=== PATIENT | male | born 1950 | race Caucasian/White ===

== ENCOUNTER 2024-11-16 09:08 | Inpatient (IN) | payer OTHER ==
[~2024-11-16] VITALS: Ht 185.4 cm; Wt 54.6 kg
[2024-11-16] VITALS (27 sets, daily range): BP systolic 85–114; BP diastolic 58–79; PULSE 74–108; RESP 14–22; TEMP 97.2–97.7; O2SAT 60–100
--- NOTE | 2024-11-16 09:42 | ED.PDOC ---
SOB-HPI HPI Comments 74 year old male presents to the ED via EMS with a chief complaint of shortness of breath onset today (11/16/24). Per EMS, family noticed patient was experiencing productive cough, face and lips were turning blue, 911 was called. Patient was seen at [facility] [place] this week, was diagnosed with possible Pneumonia, was prescribed Azithromycin. Upon EMS arrival, patient's O2 sat was 60% on RA, was placed on NRB 15 L, O2 improved to 85%, BP was 80 systolic, GCS 10 which is baseline according to family. Patient was given breathing treatment, IV fluids in route to ED, BP improved to 92 systolic. PMHx CVA. Patient is a poor historian. No other symptoms or modifying factors present at this time. Chief Complaint: Shortness of Breath Time Seen by MD: 09:20 Reviewed notes: Medications, Allergies Information Source: Emergency Med Personnel Mode of Arrival: EMS Severity: Moderate Timing: Hours Duration: Since onset Context: At Rest PE Risk Factors: None History of: Recent Antibiotic Prehospital treatment: Breathing Tx, IVF, Oxygen Modifying Factors: Nothing Associated Signs and Symptoms: Cough If cough with SOB: Productive Past Medical History PAST MEDICAL HISTORY: CVA Surgical History: Denies all surgeries Family History Family History: Reviewed,noncontributory to illness, No family hx of Cancer, No family hx of DM, No family hx of Heart go, No family hx of HTN, No family hx ofKidney go, No family hx of Liver go, No family hx of Lung go, No family hx of Stroke Social History Smoker: Non-Smoker Alcohol: Denies ETOH Use Drugs: Denies Drug Use Lives In: Home Constitutional: denies: chills, diaphoresis, fatigue, fever, malaise, sweats, weakness, others EENTM: denies: blurred vision, double vision, ear bleeding, ear discharge, ear drainage, ear pain, ear ringing, eye pain, eye redness, hearing loss, mouth pain , mouth swelling, nasal discharge, nose bleeding, nose congestion, nose pain, photophobia, tearing, throat pain, throat swelling, voice changes, others Respiratory: reports: cough, shortness of breath; denies: hemoptysis, orthopnea, SOB at rest, SOB with excertion, stridor, wheezing, others Cardiovascular: denies: chest pain, dizzy spells, diaphoresis, Dyspnea on exertion, edema, irregular heart beat, left arm pain, lightheadedness, palpitations, PND, syncope, others Gastrointestinal: denies: abdomen distended, abdominal pain, blood streaked bowels, constipated, diarrhea, dysphagia, difficulty swallowing, hematemesis, melena, nausea, poor appetite, poor fluid intake, rectal bleeding, rectal pain, vomiting, others Genitourinary: denies: burning, dysuria, flank pain, frequency, hematuria, incontinence, penile discharge, penile sore, pain, testicle pain, testicle swelling, urgency, others Neurological: denies: dizziness, fainting, headache, left sided numbness, left sided weakness, numbness, paresthesia, pre-existing deficit, right sided numbness, right sided weakness, seizure, speech problems, tingling, tremors, weakness, others Musculoskeletal: denies: back pain, gout, joint pain, joint swelling, muscle pain, muscle stiffness, neck pain, others Integumetry: denies: bruises, change in color, change in hair/nails, dryness, laceration, lesions, lumps, rash, wounds, others Allergic/Immunocompromised: denies: Difficulty Healing, Frequent Infections, Hives, Itching, others Hematologic/Lymphatic: denies: anemia, blood clots, easy bleeding, easy bruising, swollen glands, others Endocrine: denies: excessive hunger, excessive sweating, excessive thirst, excessive urination, flushing, intolerance to cold, intolerance to heat, unexplained weight gain, unexplained weight loss, others Psychiatric: denies: anxiety, bipolar disorder, depression, hopeless, panic disorder, schizophrenia, sleepless, suicidal, others All Other Systems: Reviewed and Negative Physical Exam General Appearance: No Apparent Distress, Normal HEENT: Normal ENT Inspection, Pharynx Normal, TMs Normal Neck: Full Range of Motion, Non-Tender, Normal, Normal Inspection Respiratory: Other (Tachypneic and hypoxic) Cardiovascular: No Edema, No JVD, No Murmur, No Gallop, Normal Peripheral Pulses, Regular Rate/Rhythm Breast Exam: Deferred Gastrointestinal: No Organomegaly, Non Tender, No Pulsatile Mass, Normal Bowel Sounds, Soft Genitalia: Deferred Pelvic: Deferred Rectal: Deferred Extremities: No calf tenderness, Normal capillary refill, Normal inspection, Normal range of motion, Non-tender, No pedal edema Musculoskeletal : Apperance: Normal Neurologic: Alert, sales 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 Indication: Hypotension Room prepared for procedure: Yes Try Out Person performed hand hygien: Yes Maximal sterile barrier precau: Mask/Eye shield, Sterile gown, Cap, Sterlie gloves, Large sterlie drape Skin Preparation: Chlorhexidine gluconate, Providine iodine, Alcohol Skin preparation completely dr: Yes Insertion site: Right, Femoral Central line catheter type: [id number] dialysis Number of lumens: 3 Antiseptic ointment applied to: Yes Post Assessment: Chest X-Ray, Proper placement Informed consent obtained: Yes Risks/benefits/alt described: Yes Intubation Indication: Respiratory Insufficiency Prep: Preoxygenation Pretreated with: Sedation Medicated with: Other (etomidate 20 mg, Rocuronium 100 mg) Intubation Approach: Orotracheal (8.0) Informed consent obtained: Yes Risks/benefits/alt described: Yes Differential Dx Differential Diagnosis: Asthma, Bronchitis, Hyponatremia, Pneumonia, Respiratory Distress X-Ray, Labs, Meds, VS Vital Signs Date Time Temp Pulse Resp B/P (MAP) Pulse Ox O2 Delivery O2 Flow Rate FiO2 11/16/24 14:32 97.2 98 17 114/79 100 65 97.2 11/16/24 14:02 115/77 11/16/24 14:00 115/77 11/16/24 13:12 98 17 114/79 (91) 100 65 11/16/24 12:30 101 16 111/76 (88) 100 100 11/16/24 12:23 97.2 112 16 106/76 (86) 100 97.2 11/16/24 11:43 Mechanical Ventilator 11/16/24 11:43 108 16 60 Mechanical Ventilator 11/16/24 11:43 97.2 108 16 119/81 (94) 60 97.2 11/16/24 11:10 126/79 11/16/24 11:03 125/78 11/16/24 10:38 116 16 134/84 (101) 64 100 11/16/24 10:15 131/83 11/16/24 10:03 130/84 11/16/24 10:00 130/84 11/16/24 09:52 114 16 134/83 (100) 95 100 11/16/24 09:50 134/83 11/16/24 09:48 84/53 11/16/24 09:47 97/60 11/16/24 09:17 94 22 97 Simple Mask* 12 N/A 11/16/24 09:17 97.8 94 22 94/58 (70) 97 97.8 11/16/24 09:15 99.3 90 20 90/73 (79) 85 99.3 11/16/24 09:14 20 85 Non-Rebreather 15 N/A 11/16/24 09:14 96 Lab Test 11/16/24 13:05 11/16/24 12:50 11/16/24 10:05 11/16/24 09:28 Range/Units Blood Gas Specimen Type Arterial Blood Gas Sample Site Left radial Blood Gas Patient Temperature 37.0 Arterial Blood Date Drawn [id number] Arterial Blood pH 7.262 L 7.350-7.450 Arterial Blood Partial Pressure CO2 44.3 35.0-48.0 mmHg Arterial Blood Partial Pressure O2 294.8 H 83.0-108.0 mmHg Arterial Blood HCO3 19.5 L 21.0-28.0 mmol/L Arterial Blood Oxygen Saturation 99.7 H 94.0-98.0 % Arterial Blood Base Excess -7.4 L -2.0-3.0 mmol/L Arterial Blood Oxyhemoglobin 98.6 H 94.0-98.0 % Arterial Blood Carboxyhemoglobin 0.3 L 0.5-1.5 % Arterial Blood Methemoglobin 0.8 0.0-1.5 % Cheng Test Modified Blood Gas Total Hemoglobin 16.20 13.5-17.5 g/dL Blood Gas Set Respiration Rate 16.0 Blood Gas Modality Vent - ac FiO2 % 100.0 Blood Gas Tidal Volume 500.0 Blood Gas PEEP or CPAP 10.0 Lactic Acid Level 1.3 2.7 *H 0.4-2.0 mmol/L Troponin I High Sensitivity 28 3 L </=54 ng/L Urine Color Yellow Yellow Urine Clarity Turbid H Clear Urine pH 5.0 5.0-9.0 Urine Specific [place] 1.023 1.001-1.035 Urine Protein Trace H Negative Urine Ketones 1+ H Negative Urine Blood 1+ H Negative /uL Urine Nitrite Negative Negative Urine Bilirubin Negative Negative Urine Urobilinogen Normal Negative mg/dL Urine Leukocyte Esterase Negative Negative /uL Urine RBC 10 0 - 3 /hpf Urine Microscopic WBC 9 H 0-3 /HPF Urine Squamous Epithelial Cells Few <5 /hpf Urine Bacteria None seen None Seen /hpf Urine Mucus Moderate None Seen Urine Glucose Trace Normal mg/dL White Blood Count 5.8 4.4-10.8 10^3/uL Red Blood Count 4.95 4.5-5.90 10^6/uL Hemoglobin 15.2 13.5-17.5 g/dL Hematocrit 46.0 41.0-53.0 % Mean Corpuscular Volume 92.8 80.0-100.0 fL Mean Corpuscular Hemoglobin 30.7 28.0-32.0 pg Mean Corpuscular Hemoglobin Concent 33.1 32.0-36.0 g/dL Red Cell Distribution Width 14.5 H 11.8-14.3 % Platelet Count 166 140-450 10^3/uL Mean Platelet Volume 8.7 6.9-10.8 fL Neutrophils (%) (Auto) 72.6 37.0-80.0 % Lymphocytes (%) (Auto) 17.4 10.0-50.0 % Monocytes (%) (Auto) 7.8 0.0-12.0 % Eosinophils (%) (Auto) 1.8 0.0-7.0 % Basophils (%) (Auto) 0.4 0.0-2.0 % Neutrophils # (Auto) 4.2 1.6-8.6 10 ^3/uL Lymphocytes # (Auto) 1.0 0.4-5.4 10 ^3/uL Monocytes # (Auto) 0.4 0-1.3 10 ^3/uL Eosinophils # (Auto) 0.1 0-0.8 10 ^3/uL Basophils # (Auto) 0 0-0.2 10 ^3/uL Nucleated Red Blood Cells 0.1 % Sodium Level 146 H 136-145 mmol/L Potassium Level 3.4 L 3.5-5.1 mmol/L Chloride Level 110 H 98-107 mmol/L Carbon Dioxide Level 22 20-31 mmol/L Anion Gap 14 5-15 Blood Urea Nitrogen 22 9-23 mg/dL Creatinine 1.02 0.700-1.30 mg/dL Glomerular Filtration Rate Calc 78 >90 mL/min BUN/Creatinine Ratio 21.6 H 10.0-20.0 Serum Glucose 144 H 74-106 mg/dL Calcium Level 9.3 8.7-10.4 mg/dL Total Bilirubin 0.4 0.2-1.0 mg/dL Aspartate Amino Transferase (AST) 15 <34 U/L Alanine Aminotransferase (ALT) 12 7-40 U/L Alkaline Phosphatase 84 46-116 U/L B-Type Natriuretic Peptide 7.55 0-100 pg/mL Total Protein 6.6 5.7-8.2 g/dL Albumin 4.0 3.2-4.8 g/dL Current Medications Medications (Trade) Dose Ordered Sig/Zarina Route Start Time Stop Time Status Last Admin Etomidate 20 mg ONCE ONCE IV 11/16/24 09:30 11/16/24 09:31 DC 11/16/24 09:47 Rocuronium [place] 100 mg ONCE ONCE IV 11/16/24 09:30 11/16/24 09:31 DC 11/16/24 09:47 Norepinephrine Bitartrate 250 ml @ 3.75 mls/hr Q24H IV 11/16/24 09:30 11/16/24 09:48 Propofol 100 ml @ 2.19 mls/hr Q24H IV 11/16/24 09:45 11/16/24 14:00 Midazolam HCl 50 ml @ 1 mls/hr Q24H IV 11/16/24 09:45 11/16/24 10:03 Fentanyl Citrate 250 ml @ 2.5 mls/hr Q24H IV 11/16/24 09:45 11/16/24 14:02 Cefepime HCl 50 ml @ 12.5 mls/hr ONCE ONCE IV 11/16/24 10:15 11/16/24 14:14 DC 11/16/24 10:30 Vancomycin HCl 200 ml @ 200 mls/hr ONCE ONCE IV 11/16/24 10:15 11/16/24 11:14 DC 11/16/24 10:40 Sodium Chloride 1,000 ml @ 1,000 mls/hr Q1H ONCE IV 11/16/24 10:15 11/16/24 11:14 DC 11/16/24 10:30 Rocuronium [place] 50 mg ONCE ONCE IV 11/16/24 11:15 11/16/24 11:16 DC 11/16/24 11:10 Time of 1ST Reevaluation: 09:50 Reevaluation 1ST: Unchanged Patient Education/Counseling: Diagnosis, Treatment, Prognosis Family Education/Counseling: No Family Present SEPSIS Sepsis Screen Date sepsis recognized/suspect: Nov 16, 2024 Time Sepsis recognized/suspect: 910 Recent Procedure: No On Antibiotic Therapy: No Respiratory Rate >20: No Heart Rate >90: No Temp<36 C (96.8 F) or >38.3 C: No SBP <90 or MAP <65 mmHG: No New Acute Mental Status Change: No Is the patient on CPAP, BIPAP,: No Physician Orders Electrocardigram (11/16/24 09:20) Chest Portable (11/16/24 09:21) Troponin-I Hs (11/16/24 12:21) Norepinephrine 8 Mg/250ml Kit (Levophed) (11/16/24 09:30) Propofol (Diprivan) (11/16/24 09:45) Midazolam Drip 50 Mg/50ml (Versed Drip 5 (11/16/24 09:45) Fentanyl Drip 2500mcg/250mlns (11/16/24 09:45) Rass Sedation Scale Q1HR (11/16/24 09:45) Communication Order (11/16/24 09:49) Vent Ip Init (11/16/24 09:56) Respiratory Culture W/ Gs (11/16/24 09:56) Abg W/ Co-Ox (11/16/24 10:45) Ventilator Orders (11/16/24 10:47) Blood Culture (11/16/24 12:21) Respiratory Culture W/ Gs (11/16/24 13:21) Chest Xray 1 View (11/16/24 13:21) Rt To Be Bedside For Broncho (11/16/24 10:30) Vital Signs Date Time Temp Pulse Resp B/P (MAP) Pulse Ox O2 Delivery O2 Flow Rate FiO2 11/16/24 14:32 97.2 98 17 114/79 100 65 97.2 11/16/24 14:02 115/77 11/16/24 14:00 115/77 11/16/24 13:12 98 17 114/79 (91) 100 65 11/16/24 12:30 101 16 111/76 (88) 100 100 11/16/24 12:23 97.2 112 16 106/76 (86) 100 97.2 11/16/24 11:43 Mechanical Ventilator 11/16/24 11:43 108 16 60 Mechanical Ventilator 11/16/24 11:43 97.2 108 16 119/81 (94) 60 97.2 11/16/24 11:10 126/79 11/16/24 11:03 125/78 11/16/24 10:38 116 16 134/84 (101) 64 100 11/16/24 10:15 131/83 11/16/24 10:03 130/84 11/16/24 10:00 130/84 11/16/24 09:52 114 16 134/83 (100) 95 100 11/16/24 09:50 134/83 11/16/24 09:48 84/53 11/16/24 09:47 97/60 11/16/24 09:17 94 22 97 Simple Mask* 12 N/A 11/16/24 09:17 97.8 94 22 94/58 (70) 97 97.8 11/16/24 09:15 99.3 90 20 90/73 (79) 85 99.3 11/16/24 09:14 20 85 Non-Rebreather 15 N/A 11/16/24 09:14 96 Laboratory Tests Test 11/16/24 09:28 11/16/24 12:50 Lactic Acid Level 2.7 mmol/L (0.4-2.0) *H 1.3 mmol/L (0.4-2.0) White Blood Count 5.8 10^3/uL (4.4-10.8) Medications Medications Dose Ordered Sig/Zarina Route Start Time Stop Time Status Last Admin Dose Admin Cefepime HCl 50 ml @ 12.5 mls/hr ONCE ONCE IV 11/16/24 10:15 11/16/24 14:14 DC 11/16/24 10:30 Etomidate 20 mg ONCE ONCE IV 11/16/24 09:30 11/16/24 09:31 DC 11/16/24 09:47 Fentanyl Citrate 250 ml @ 2.5 mls/hr Q24H IV 11/16/24 09:45 11/16/24 14:02 Midazolam HCl 50 ml @ 1 mls/hr Q24H IV 11/16/24 09:45 11/16/24 10:03 Norepinephrine Bitartrate 250 ml @ 3.75 mls/hr Q24H IV 11/16/24 09:30 11/16/24 09:48 Propofol 100 ml @ 2.19 mls/hr Q24H IV 11/16/24 09:45 11/16/24 14:00 Rocuronium [place] 50 mg ONCE ONCE IV 11/16/24 11:15 11/16/24 11:16 DC 11/16/24 11:10 Rocuronium [place] 100 mg ONCE ONCE IV 11/16/24 09:30 11/16/24 09:31 DC 11/16/24 09:47 Sodium Chloride 1,000 ml @ 1,000 mls/hr Q1H ONCE IV 11/16/24 10:15 11/16/24 11:14 DC 11/16/24 10:30 Vancomycin HCl 200 ml @ 200 mls/hr ONCE ONCE IV 11/16/24 10:15 11/16/24 11:14 DC 11/16/24 10:40 Departure 1 Departure Time of Disposition: 14:42 ([place] authorization to admit a [facility] [phone]. Discussed the case with Dr. NAVA who agrees that patient is unstable for transfer at this time.Patient presented in acute respiratory distress hypoxic and altered. Patient was emergently intubated and central line placed. Pulmonary was emergently consulted for suspected aspiration of foreign body versus mucus plug. Pulmonology came to the bedside and performed a bronch on the patient and removed foreign material from patient's lung. Patient's sats have improved. Patient will be admitted to the ICU for further workup and expert consultation.Patient is not septic. Patient had aspirated a foreign body that was extracted in the ER.) Impression: Primary Impression: Acute hypoxic respiratory failure Additional Impression: Aspiration of foreign body Qualified Codes: T17.908A - Unspecified foreign body in respiratory tract, part unspecified causing other injury, initial encounter Disposition: ADMITTED INPATIENT Admit to: ICU Condition: Critical Critical Care Note Critical Care Time?: Yes Critical care comment: Acute hypoxic respiratory failure Authorized and Performed by: Steve Kam MD Total critical care time: Approximately 118 minutes Due to a high probability of clinically significant, life threatening deterioration, the patient required my highest level of preparedness to intervene emergently and I personally spent this critical care time directly and personally managing the patient. This critical care time included obtaining a history; examining the patient; pulse oximetry; ordering and review of studies; arranging urgent treatment with development of a management plan; evaluation of patient's response to treatment; frequent reassessment; and, discussions with other providers. This critical care time was performed to assess and manage the high probability of imminent, life-threatening deterioration that could result in multi-organ failure. It was exclusive of separately billable procedures and treating other patients and teaching time. Please see my other sections and the rest of the note for further information on patient assessment and treatment. Stability Stability form required: No Heart Score Heart Score: Heart Score Response (Comments) Value History N/A 0 EKG N/A 0 Age N/A 0 Risk Factors N/A 0 Troponin N/A 0 Total 0 I personally scribed for STEVE KAM MD ([email or web address]) on 11/16/24 at 09:42. Electronically submitted by Consuelo Walls ([email or web address]). I personally scribed for STEVE KAM MD ([email or web address]) on 11/16/24 at 10:03. Electronically submitted by Consuelo Walls ([email or web address]). STEVE KAM MD Nov 16, 2024 09:42
[2024-11-16] MEDS: ETOMIDATE (2MG/ML) 20ML VIAL IV ONE ×2 (09:46→09:47)
[2024-11-16] MEDS: ROCURONIUM 10MG/ML 10ML VIAL IV ONE ×4 (09:46→11:16)
[2024-11-16] MEDS: NOREPINEPHRINE 8 MG/250ML KIT 250 ML IV ONE (09:47)
[2024-11-16] MEDS: NOREPINEPHRINE 8 MG/250ML KIT 250 ML IV SCH (09:48)
[2024-11-16 09:58] LABS: Basophils # (auto) 0 10 ^3/uL (0-0.2); Basophils % (auto) 0.4 % (0.0-2.0); Eosinophils # (auto) 0.1 10 ^3/uL (0-0.8); Eosinophils % (auto) 1.8 % (0.0-7.0); Hemoglobin 15.2 g/dL (13.5-17.5); Lymphocytes % (auto) 17.4 % (10.0-50.0); Mean Corpuscular Hemoglobin 30.7 pg (28.0-32.0); Mean Corpuscular Hgb Conc. 33.1 g/dL (32.0-36.0); Mean Corpuscular Volume 92.8 fL (80.0-100.0); Monocytes # (auto) 0.4 10 ^3/uL (0-1.3); Monocytes % (auto) 7.8 % (0.0-12.0); Neutrophils # (auto) 4.2 10 ^3/uL (1.6-8.6); Neutrophils % (auto) 72.6 % (37.0-80.0); Nucleated Red Blood Cells % 0.1 %; Platelet Count (auto) 166 10^3/uL (140-450); Red Blood Cells 4.95 10^6/uL (4.5-5.90); Red Cell Distribution Width 14.5 % (11.8-14.3); White Blood Cell 5.8 10^3/uL (4.4-10.8)
[2024-11-16] MEDS: MIDAZOLAM DRIP 50 mg/50mL 50 ML IV SCH (10:03)
[2024-11-16 10:15] LABS: Urine Bacteria None Seen /hpf (None Seen)
[2024-11-16 10:24] LABS: Urine Blood 1+ /uL (Negative); Urine Clarity Turbid (Clear); Urine Color Yellow (Yellow); Urine Mucus MODERATE (None Seen); Urine Protein, UAD TRACE (Negative); Urine Specific Gravity 1.023 (1.001-1.035); Urine Squamous Epithelial Cell FEW /hpf (<5); Urine Urobilinogen Normal (Negative); Urine WBC 9 /HPF (0-3)
[2024-11-16] MEDS: SODIUM CHLORIDE 0.9% 1,000 ML IV ONE (10:30)
[2024-11-16] MEDS: CEFEPIME 2GM/50ML NS 50 ML IV ONE (10:30)
[2024-11-16 10:32] LABS: Alanine Aminotransferase 12 U/L (7-40); Alkaline Phosphatase 84 U/L (46-116); Anion Gap 14 (5-15); Aspartate Aminotransferase 15 U/L (<34); BUN/Creatinine Ratio 21.6 (10.0-20.0); Bilirubin, Total 0.4 mg/dL (0.2-1.0); Blood Urea Nitrogen 22 mg/dL (9-23); Calcium 9.3 mg/dL (8.7-10.4); Carbon Dioxide 22 mmol/L (20-31); Total Protein 6.6 g/dL (5.7-8.2)
--- NOTE | 2024-11-16 10:34 | DVH ---
XY CHEST PORTABLE, HISTORY: sob COMPARISON: None None TECHNICAL DATA: 1 view of the chest was obtained. FINDINGS: Lines and tubes: ET in the mid thoracic trachea. NG in the stomach. Cardiomediastinal silhouette: normal Pulmonary vasculature: normal Lung expansion: low Lung airspace: Left basilar consolidation with trace left pleural effusion. Lung interstitium: normal Pleura: Pneumothorax: no Bones: Unremarkable Other: no IMPRESSION: Left basilar consolidation with trace left pleural effusion. ET in the mid thoracic trachea. NG in the stomach.
[2024-11-16 10:35] LABS: Chloride 110 mmol/L (98-107); Glucose 144 mg/dL (74-106); Potassium 3.4 mmol/L (3.5-5.1); Sodium 146 mmol/L (136-145)
[2024-11-16 10:36] LABS: Lactic Acid w/Reflex 2.7 mmol/L (0.4-2.0)
[2024-11-16] MEDS: VANCOMYCIN 1GM/200ML PM 200 ML IV ONE (10:40)
[2024-11-16] MEDS: fentaNYL Drip 2500mCg/250mlNS 250 ML IV SCH (10:46)
[2024-11-16] MEDS: PROPOFOL 100 ML IV SCH (10:46)
[2024-11-16 13:20] LABS: Base Excess -7.4 mmol/L (-2.0-3.0)
--- NOTE | 2024-11-16 14:01 | DVH ---
EXAM: XY CHEST XRAY 1 VIEW HISTORY: RE-INTUBATED/OGT REPLACED COMPARISON: XY CHEST PORTABLE on DOS: 11/16/24 TECHNIQUE: Portable upright AP view of the chest was performed. FINDINGS: There is an endotracheal tube with its tip 4.3 cm above the jg. There is an OG tube with its tip in the stomach. There are infiltrates throughout the left lung, greater than that seen previously. N o pneumothorax. The heart is not enlarged. IMPRESSION: 1. Mechanical ventilation with endotracheal tube and OG tube in good position. 2. Increased left-sided pneumonia.
--- NOTE | 2024-11-16 15:44 | DVH ---
CHEST RADIOGRAPH Indication: S/P BRONCHOSCOPY Technique: Single frontal view of the chest was obtained COMPARISON: XY CHEST XRAY 1 VIEW on DOS: 11/16/24, XY CHEST PORTABLE on DOS: 11/16/24 FINDINGS: Lines and Tubes: Endotracheal tube and enteric catheter in satisfactory position. Lungs: Multifocal left lung airspace disease Pleura: No effusion. No pneumothorax. Cardiomediastinal contours: Unremarkable Bones: Unremarkable IMPRESSION: No appreciable pneumothorax.
[2024-11-16] MEDS ORDERED: FLU01T PO (16:24)
[2024-11-16] MEDS ORDERED: SIMV40TA18 PO (16:24)
[2024-11-16] MEDS ORDERED: CLOP75TA70 PO (16:24)
--- NOTE | 2024-11-16 16:25 | DVHHP2 ---
History of Present Illness Reason for Visit: SOB History of Present Illness Rigo Whitmore is a 74-year-old male with past medical history of CVA with right- sided hemiparesis, hypotension, prediabetic, bladder tumor removal, and nephrolithiasis who presents to the ED with shortness of breath and a nonproductive cough. Per Sindy she states that he was discharged yesterday from [facility] and she took him home today was going to the bathroom and was making him breakfast. She states that he was eating breakfast sausage and aches and started to cough and choke. Sindy does state that normally he does cough when he eats. She states that his lips started turning blue and his oxygen level dropped. She also reports that patient walks with assistance from her but does not use any DMEs. She also reports that he quit smoking, does not use illicit drugs, and does not drink. Patient currently intubated upon examination unable to obtain further information from him. 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) Past Medical History Hypotension Prediabetic Nephrolithiasis Past Surgical History: Other (Bladder tumor removal) Smoke: Quit ALCOHOL: none Drugs: None Lives: with Family Domestic Violence: Neg Review of Systems Respiratory: Shortness of breath Allergies: Coded Allergies: NO KNOWN ALLERGIES (Unverified , 11/16/24) Medications Current Medications Medications Dose Ordered Sig/Zarina Route Start Time Stop Time Status Last Admin Dose Admin Norepinephrine Bitartrate 250 ml @ 3.75 mls/hr Q24H IV 11/16/24 09:30 11/16/24 09:48 18.75 MLS/HR Propofol 100 ml @ 2.19 mls/hr Q24H IV 11/16/24 09:45 11/16/24 14:00 2.19 MLS/HR Midazolam HCl 50 ml @ 1 mls/hr Q24H IV 11/16/24 09:45 11/16/24 14:58 5 MLS/HR Fentanyl Citrate 250 ml @ 2.5 mls/hr Q24H IV 11/16/24 09:45 11/16/24 14:02 2.5 MLS/HR Potassium Chloride 100 ml @ 50 mls/hr Q2H IV 11/16/24 16:30 11/16/24 20:29 UNV Sodium Chloride 1,000 ml @ 120 mls/hr Q8H20M IV 11/16/24 16:30 UNV Ondansetron HCl 4 mg Q4HP PRN IV 11/16/24 16:30 UNV Acetaminophen 650 mg Q6HP PRN PO 11/16/24 16:30 UNV Nitroglycerin 0.4 mg Q5MINP PRN SL 11/16/24 16:30 UNV Morphine Sulfate 2 mg Q30M PRN IV 11/16/24 16:30 UNV Enoxaparin Sodium 40 mg DAILY SC 11/16/24 16:30 UNV Vancomycin HCl 0 ml @ 0 mls/hr UD IV 11/16/24 16:30 UNV Cefepime HCl 50 ml @ 12.5 mls/hr Q8HR IV 11/16/24 22:00 UNV Exam Vital Signs Vital Signs Date Time Temp Pulse Resp B/P (MAP) Pulse Ox O2 Delivery O2 Flow Rate FiO2 11/16/24 15:36 88 16 96/70 (79) 100 45 11/16/24 15:00 98.1 98.1 11/16/24 11:43 Mechanical Ventilator 11/16/24 09:17 12 Cardiovascular: Normal S1, Normal S2 Abdominal: Soft Labs/Xrays Labs Test 11/16/24 14:52 11/16/24 13:05 11/16/24 12:50 11/16/24 10:05 Range/Units Troponin I High Sensitivity 54 </=54 ng/L Blood Gas Specimen Type Arterial Blood Gas Sample Site Left radial Blood Gas Patient Temperature 37.0 Arterial Blood Date Drawn [id number] Arterial Blood pH 7.262 L 7.350-7.450 Arterial Blood Partial Pressure CO2 44.3 35.0-48.0 mmHg Arterial Blood Partial Pressure O2 294.8 H 83.0-108.0 mmHg Arterial Blood HCO3 19.5 L 21.0-28.0 mmol/L Arterial Blood Oxygen Saturation 99.7 H 94.0-98.0 % Arterial Blood Base Excess -7.4 L -2.0-3.0 mmol/L Arterial Blood Oxyhemoglobin 98.6 H 94.0-98.0 % Arterial Blood Carboxyhemoglobin 0.3 L 0.5-1.5 % Arterial Blood Methemoglobin 0.8 0.0-1.5 % Cheng Test Modified Blood Gas Total Hemoglobin 16.20 13.5-17.5 g/dL Blood Gas Set Respiration Rate 16.0 Blood Gas Modality Vent - ac FiO2 % 100.0 Blood Gas Tidal Volume 500.0 Blood Gas PEEP or CPAP 10.0 Lactic Acid Level 1.3 0.4-2.0 mmol/L Urine Color Yellow Yellow Urine Clarity Turbid H Clear Urine pH 5.0 5.0-9.0 Urine Specific [place] 1.023 1.001-1.035 Urine Protein Trace H Negative Urine Ketones 1+ H Negative Urine Blood 1+ H Negative /uL Urine Nitrite Negative Negative Urine Bilirubin Negative Negative Urine Urobilinogen Normal Negative mg/dL Urine Leukocyte Esterase Negative Negative /uL Urine RBC 10 0 - 3 /hpf Urine Microscopic WBC 9 H 0-3 /HPF Urine Squamous Epithelial Cells Few <5 /hpf Urine Bacteria None seen None Seen /hpf Urine Mucus Moderate None Seen Urine Glucose Trace Normal mg/dL Test 11/16/24 09:28 Range/Units White Blood Count 5.8 4.4-10.8 10^3/uL Red Blood Count 4.95 4.5-5.90 10^6/uL Hemoglobin 15.2 13.5-17.5 g/dL Hematocrit 46.0 41.0-53.0 % Mean Corpuscular Volume 92.8 80.0-100.0 fL Mean Corpuscular Hemoglobin 30.7 28.0-32.0 pg Mean Corpuscular Hemoglobin Concent 33.1 32.0-36.0 g/dL Red Cell Distribution Width 14.5 H 11.8-14.3 % Platelet Count 166 140-450 10^3/uL Mean Platelet Volume 8.7 6.9-10.8 fL Neutrophils (%) (Auto) 72.6 37.0-80.0 % Lymphocytes (%) (Auto) 17.4 10.0-50.0 % Monocytes (%) (Auto) 7.8 0.0-12.0 % Eosinophils (%) (Auto) 1.8 0.0-7.0 % Basophils (%) (Auto) 0.4 0.0-2.0 % Neutrophils # (Auto) 4.2 1.6-8.6 10 ^3/uL Lymphocytes # (Auto) 1.0 0.4-5.4 10 ^3/uL Monocytes # (Auto) 0.4 0-1.3 10 ^3/uL Eosinophils # (Auto) 0.1 0-0.8 10 ^3/uL Basophils # (Auto) 0 0-0.2 10 ^3/uL Nucleated Red Blood Cells 0.1 % Sodium Level 146 H 136-145 mmol/L Potassium Level 3.4 L 3.5-5.1 mmol/L Chloride Level 110 H 98-107 mmol/L Carbon Dioxide Level 22 20-31 mmol/L Anion Gap 14 5-15 Blood Urea Nitrogen 22 9-23 mg/dL Creatinine 1.02 0.700-1.30 mg/dL Glomerular Filtration Rate Calc 78 >90 mL/min BUN/Creatinine Ratio 21.6 H 10.0-20.0 Serum Glucose 144 H 74-106 mg/dL Calcium Level 9.3 8.7-10.4 mg/dL Total Bilirubin 0.4 0.2-1.0 mg/dL Aspartate Amino Transferase (AST) 15 <34 U/L Alanine Aminotransferase (ALT) 12 7-40 U/L Alkaline Phosphatase 84 46-116 U/L B-Type Natriuretic Peptide 7.55 0-100 pg/mL Total Protein 6.6 5.7-8.2 g/dL Albumin 4.0 3.2-4.8 g/dL Microbiology Date/Time Source Procedure Growth Status 11/16/24 12:24 Other Bronchial Received 11/16/24 10:02 Sputum Gram Stain - Final Resulted 11/16/24 10:02 Sputum Respiratory Culture Pending Resulted CHEST RADIOGRAPH Indication: S/P BRONCHOSCOPY Technique: Single frontal view of the chest was obtained COMPARISON: XY CHEST XRAY 1 VIEW on DOS: 11/16/24, XY CHEST PORTABLE on DOS: 11/16/24 FINDINGS: Lines and Tubes: Endotracheal tube and enteric catheter in satisfactory position. Lungs: Multifocal left lung airspace disease Pleura: No effusion. No pneumothorax. Cardiomediastinal contours: Unremarkable Bones: Unremarkable IMPRESSION: No appreciable pneumothorax. Assessment/Plan Assessment/Plan Assessment Acute hypoxic respiratory failure likely due to foreign body aspiration Lactic acidosis likely due to pneumonia and left pleural effusion rule out sepsis Hypernatremia Hypokalemia Hyperglycemia Coccyx wound History of CVA right-sided hemiparesis Ex-smoker History of hypotension History of prediabetes History of bladder tumor removal History of nephrolithiasis Plan Admit to ICU Intubated on vent Replete lytes Hemoglobin A1c ISS and Accu-Cheks Brown per Pulmonary IV antibiotics-vancomycin + cefepime Sedation Pressors to keep maps greater than 65 Chest x-ray noted Respiratory culture Blood cultures ABG BNP UA Urine culture Lactic level noted EKG Troponin negative x2 CT head ordered CT chest ordered CT abdomen and pelvis ordered Home medications reconciled DVT prophylaxis-patient on Plavix PUD prophylaxis-PPIs Discussed plan of care with patient's spouse and nurse Plan discussed with: Other My Orders Orders - JANET CHENG SUBSORTER Procedure Category Date Status Time Potassium Chl PHA 11/16/24 Logged 20meq/100ml 16:30 Admit ADMIT 11/16/24 Transmitted 16:18 Allergies PREMA 11/16/24 In Process 16:18 Code Status CODE 11/16/24 Transmitted 16:18 Sodium Chloride 0.9% PHA 11/16/24 Logged 16:30 Ondansetron Hcl PHA 11/16/24 Logged (Zofran) 16:30 Complete Blood Count LAB 11/17/24 Verified 04:00 Comprehensive LAB 11/17/24 Verified Metabolic Panel 04:00 Npo (Nothing By DIET 11/16/24 Transmitted Mouth) Diet Dinner Acetaminophen Tablet [facility] 11/16/24 Logged (Tylenol Tablet) 16:30 Nitroglycerin PHA 11/16/24 Logged Sublingual (Ntrostat 16:30 Morphine Sulfate PHA 11/16/24 Logged Injection 16:30 Stat Ekg For Chest [facility] 11/16/24 In Process Pain 16:18 Notify Of Changes [facility] 11/16/24 In Process From Base 16:18 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 [facility] 11/16/24 In Process 24 Hours 16:18 Emergency Dysrhythmia [facility] 11/16/24 In Process Protocol 16:18 Rhythm Strips Once [facility] 11/16/24 In Process Every Shift 16:18 Oxygen By Nasal RT 11/16/24 Transmitted Cannula 16:18 Enoxaparin Sodium PHA 11/16/24 Logged (Lovenox) 16:30 Vancomycin Per PHA 11/16/24 Logged Pharmacy 16:30 Cefepime 1gm/ 50ml PHA 11/16/24 Logged (Maxipime 1gm/50ml) 22:00 Clopidogrel Bisulfate PHA 11/17/24 Transmitted (Plavix) 10:00 Fludrocortisone PHA 11/17/24 Transmitted Tablet (Florinef 10:00 Atorvastatin (Lipitor) PHA 11/16/24 Transmitted 22:00 Date of Service: Nov 16, 2024 Billing Provider: JANET CHENG Common Visit Codes: [id number] INP/OBS CARE (HIGH) JANET CHENG Nov 16, 2024 16:25
[2024-11-16] MEDS ORDERED: ENOXAPARIN SOD 40 MG/0.4 ML SYRINGE SC SCH (16:30)
[2024-11-16] MEDS ORDERED: ONDANSETRON HCL 4 MG/2 ML VIAL IV PRN (16:30)
[2024-11-16] MEDS ORDERED: NITROGLYCERIN 0.4 MG SL TAB SL PRN (16:30)
[2024-11-16] MEDS ORDERED: VANCOMYCIN PER PHARMACY 0 MG IV SCH (16:30)
[2024-11-16] MEDS ORDERED: ACETAMINOPHEN 325 MG TAB PO PRN (16:30)
[2024-11-16] MEDS ORDERED: MORPHINE SULFATE INJ 2 MG/ml SYRG IV PRN (16:30)
[2024-11-16] MEDS: SODIUM CHLORIDE 0.9% 1,000 ML IV SCH (16:30)
[2024-11-16] MEDS: VANCOMYCIN 750MG KIT 100 ML IV SCH (19:00)
--- NOTE | 2024-11-16 19:04 | DVH ---
COMPUTERIZED TOMOGRAPHY OF THE HEAD WITHOUT CONTRAST REASON FOR STUDY: ams COMPARISON: None TECHNIQUE: Helical tomographic scans were obtained through the brain. 2-D coronal and sagittal refor matted images are provided. Automated exposure control was used. RADIATION DOSE: CTDI: 63.65 mGy DLP: 1190.55 mGy-cm FINDINGS: No suspicious intracranial hypodensity to suggest acute blood. There is a small old infarct in the superior left cerebellum. There are old infarcts and bilateral thalami. There is no mass effe ct nor midline shift. There is moderate generalized volume loss with compensatory enlargement of the CSF spaces. There is no hydrocephalus. The suprasellar cistern is intact. There are scattered periven tricular and deep white matter hypodensities that are most consistent with chronic microangiopathic c hanges. The calvarium is intact. There is a small retention cyst versus polyp in the left frontal sin us. The visualized mastoid air cells and paranasal sinuses are otherwise clear. IMPRESSION: No acute intracranial abnormality. Old infarcts and bilateral thalami and left cerebellum Moderate generalized volume loss with chronic small vessel ischemic change.
--- NOTE | 2024-11-16 19:24 | DVH ---
COMPUTERIZED TOMOGRAPHY CHEST/ABDOMEN/PELVIS WITHOUT INTRAVENOUS CONTRAST CLINICAL HISTORY: r/o abd mass COMPARISON: None TECHNIQUE: Axial CT images of the chest, abdomen and pelvis were obtained. 2-D coronal and sagittal r eformatted images were provided. Automated exposure control was used. RADIATION DOSE: CTDI: 8.17 mGy DLP: 597.04 mGy-cm FINDINGS: CHEST: There is subtle patchy ground-glass airspace disease throughout the right lower lobe. There is more d ense airspace disease throughout the left upper lobe. There is tree in bud nodularity at the peripher y of the left upper lobe. There is moderate dependent atelectasis in the left lower lobe. There is el evation of the left hemidiaphragm. There is no significant pleural effusion. There is no pneumothora x. An endotracheal tube terminates in midtrachea. There is a deep lobe of the right thyroid gland. Th e thyroid gland contains several hypoechoic nodules and calcifications. The heart is not enlarged. Th ere is no pericardial effusion. There is no thoracic aortic aneurysm. The esophagus appears thickene d. There is a small amount of fluid in the midportion of the esophagus. There is an enteric tube pas sing through the esophagus and terminating in the gastric fundus. No pathologic lymphadenopathy is id entified in the chest within the limitations of this noncontrast study. ABDOMEN/PELVIS: The spleen is not enlarged. The liver is normal in size and contour. There is pneumobilia in the left lobe of the liver. The gallbladder is not seen and is likely absent. Evaluation of the abdominal org ans is suboptimal in the absence of intravenous contrast. Evaluation of the abdomen and pelvis is de graded by streak artifact from the patient's arms. Unenhanced appearance of the pancreas is grossly u nremarkable. The adrenal glands are normal. The kidneys are similar in size. There are several left r enal cortical and parapelvic simple cysts, none of which require dedicated follow-up. There is a 2 m m nonobstructive calculus at the inferior pole of the left kidney. There is no hydronephrosis of eith er kidney. The urinary bladder is decompressed about a Clay catheter balloon. The prostate is sign ificantly enlarged. There is a venous catheter entering the right common femoral vein and terminating in the right common iliac vein. There is no abdominal aortic aneurysm. There is mild nonspecific tadeo ateral perinephric stranding. No free fluid is identified in the abdomen or pelvis. There is a 10.4 c m stool ball distending the rectum. There is moderate to large colonic stool burden throughout the co fide. The appendix is normal. There is no pathologic distention of the small bowel. No pathologic lymp hadenopathy is identified in the abdomen or pelvis. No acute osseous abnormality is identified. There are old healed fractures of the left 5th, 6th, 7th, 8th, 9th, and 10th ribs. There are degenerative changes in the lower lumbar spine. IMPRESSION: Large stool ball distending the rectum. Overall moderate to large colonic stool burden consistent wi th constipation. No other intra-abdominal or pelvic mass is identified. Bilateral airspace disease most consistent with bronchopneumonitis. No significant pleural effusion. Diffusely thickened esophagus. This may represent esophagitis and is suggestive of reflux. Nonobstructive 2 mm calculus at the inferior pole of the left kidney.
--- NOTE | 2024-11-16 20:17 | DVHINCON2 ---
Date of service: Nov 16, 2024 Referring Physician Rossi Estrella NP Reason for Consultation Acute hypoxic respiratory failure requiring mechanical ventilator, foreign body in lung and aspiration pneumonia. History of Present Illness A 74-year-old man with past medical history of CVA with right-sided hemiparesis, hypotension, prediabetes, bladder tumor, and nephrolithiasis who presents to the ED today with complaints of shortness of breath and a nonproductive cough. Per , pt was discharged yesterday from [facility]. He was eating breakfast today when he started to cough and choke. She noticed that his lips started turning blue and his oxygen level dropped. Patient was thus brought in to ED for evaluation. reports patient is able to ambulate with assistance, does not use any assistive devices. Patient was admitted for further care, and pulmonary consultation is requested for evaluation and management of acute hypoxic respiratory failure requiring mechanical ventilator, foreign body in lung and aspiration pneumonia. Review of Systems: Unable to obtain d/t intubated status. Past Medical History: CVA with right-sided hemiparesis, hypotension, prediabetes, bladder tumor, and nephrolithiasis Past Surgical History: Bladder tumor removal Medications: Reviewed. Allergies: No known drug allergies. Family History: No family history of premature CAD. No family history of lung disorders. Social History: Former smoker. No alcohol or illicit drug use. Allergies: Coded Allergies: NO KNOWN ALLERGIES (Unverified , 11/16/24) Home Meds Reported Medications Fludrocortisone Acetate (Florinef) 0.1 Mg Tb, 1 TAB PO DAILY 11/16/24 Simvastatin (Simvastatin) 40 Mg Tab, 1 TAB PO 11/16/24 Clopidogrel Bisulfate (CLOPIDOGREL) 75 Mg Tab, 1 TAB PO DAILY 11/16/24 Current Medications Current Medications Medications (Trade) Dose Ordered Sig/Zarina Route PRN Reason Start Time Stop Time Status Last Admin Norepinephrine Bitartrate 250 ml @ 3.75 mls/hr Q24H IV 11/16/24 09:30 11/16/24 09:48 Propofol 100 ml @ 2.19 mls/hr Q24H IV 11/16/24 09:45 11/16/24 14:00 Midazolam HCl 50 ml @ 1 mls/hr Q24H IV 11/16/24 09:45 11/16/24 14:58 Fentanyl Citrate 250 ml @ 2.5 mls/hr Q24H IV 11/16/24 09:45 11/16/24 14:02 Potassium Chloride 100 ml @ 50 mls/hr Q2H IV 11/16/24 16:30 11/16/24 20:29 Sodium Chloride 1,000 ml @ 120 mls/hr Q8H20M IV 11/16/24 16:30 Ondansetron HCl (Zofran) 4 mg Q4HP PRN IV NAUSEA / VOMITING 11/16/24 16:30 Acetaminophen (Tylenol Tablet) 650 mg Q6HP PRN PO PAIN SCALE 1-3 OR TEMP>100.4 11/16/24 16:30 Nitroglycerin (Ntrostat Sublingual) 0.4 mg Q5MINP PRN SL FOR CHEST PAIN 11/16/24 16:30 Morphine Sulfate 2 mg Q30M PRN IV FOR CHEST PAIN 11/16/24 16:30 Enoxaparin Sodium (Lovenox) 40 mg DAILY SC 11/16/24 16:30 11/16/24 16:25 DC Vancomycin HCl 0 ml @ 0 mls/hr UD IV 11/16/24 16:30 Cefepime HCl 50 ml @ 12.5 mls/hr Q8H IV 11/16/24 20:00 Clopidogrel Bisulfate (Plavix) 75 mg DAILY PO 11/17/24 10:00 Fludrocortisone Acetate (Florinef Tablet) 0.1 mg DAILY PO 11/17/24 10:00 Atorvastatin Calcium (Lipitor) 40 mg HS PO 11/16/24 22:00 Vancomycin HCl 100 ml @ 100 mls/hr Q8H IV 11/16/24 19:00 Pantoprazole Sodium (Protonix) 40 mg DAILY IV 11/17/24 10:00 Vital Signs Vital Signs Date Time Temp Pulse Resp B/P (MAP) Pulse Ox O2 Delivery O2 Flow Rate FiO2 11/16/24 20:00 76 11/16/24 19:15 97.7 16 86/61 (69) 97 97.7 11/16/24 18:12 30 11/16/24 11:43 Mechanical Ventilator 11/16/24 09:17 12 Physical Exam Gen.: Patient lying in bed in medical ICU. Sedated, intubated on mechanical ventilator. Head: Normocephalic, atraumatic. Eyes: PERRLA. Ears: Normal external anatomy. Throat: Endotracheal tube and orogastric tube in place. Neck: Supple, trachea midline. Chest: Transmitted breath sounds bilaterally. Decreased air entry bilaterally. No wheezing. Bibasilar crackles. Cardiovascular: Positive S1, positive S2. Regular rate and rhythm. Abdomen: Positive bowel sounds in all 4 quadrants. Soft, nontender, nondistended. : Clay in place. Normal external genitalia. Rectal: Deferred. Skin: Warm, dry. Intact. Extremities: 2+ radial pulses bilaterally. No lower extremity edema. Neuro: Sedated. Labs/Diagnostic Data Labs Test 11/16/24 14:52 11/16/24 13:05 11/16/24 12:50 11/16/24 10:05 Range/Units Troponin I High Sensitivity 54 </=54 ng/L Blood Gas Specimen Type Arterial Blood Gas Sample Site Left radial Blood Gas Patient Temperature 37.0 Arterial Blood Date Drawn [id number] Arterial Blood pH 7.262 L 7.350-7.450 Arterial Blood Partial Pressure CO2 44.3 35.0-48.0 mmHg Arterial Blood Partial Pressure O2 294.8 H 83.0-108.0 mmHg Arterial Blood HCO3 19.5 L 21.0-28.0 mmol/L Arterial Blood Oxygen Saturation 99.7 H 94.0-98.0 % Arterial Blood Base Excess -7.4 L -2.0-3.0 mmol/L Arterial Blood Oxyhemoglobin 98.6 H 94.0-98.0 % Arterial Blood Carboxyhemoglobin 0.3 L 0.5-1.5 % Arterial Blood Methemoglobin 0.8 0.0-1.5 % Cheng Test Modified Blood Gas Total Hemoglobin 16.20 13.5-17.5 g/dL Blood Gas Set Respiration Rate 16.0 Blood Gas Modality Vent - ac FiO2 % 100.0 Blood Gas Tidal Volume 500.0 Blood Gas PEEP or CPAP 10.0 Lactic Acid Level 1.3 0.4-2.0 mmol/L Urine Color Yellow Yellow Urine Clarity Turbid H Clear Urine pH 5.0 5.0-9.0 Urine Specific [place] 1.023 1.001-1.035 Urine Protein Trace H Negative Urine Ketones 1+ H Negative Urine Blood 1+ H Negative /uL Urine Nitrite Negative Negative Urine Bilirubin Negative Negative Urine Urobilinogen Normal Negative mg/dL Urine Leukocyte Esterase Negative Negative /uL Urine RBC 10 0 - 3 /hpf Urine Microscopic WBC 9 H 0-3 /HPF Urine Squamous Epithelial Cells Few <5 /hpf Urine Bacteria None seen None Seen /hpf Urine Mucus Moderate None Seen Urine Glucose Trace Normal mg/dL Test 11/16/24 09:28 Range/Units White Blood Count 5.8 4.4-10.8 10^3/uL Red Blood Count 4.95 4.5-5.90 10^6/uL Hemoglobin 15.2 13.5-17.5 g/dL Hematocrit 46.0 41.0-53.0 % Mean Corpuscular Volume 92.8 80.0-100.0 fL Mean Corpuscular Hemoglobin 30.7 28.0-32.0 pg Mean Corpuscular Hemoglobin Concent 33.1 32.0-36.0 g/dL Red Cell Distribution Width 14.5 H 11.8-14.3 % Platelet Count 166 140-450 10^3/uL Mean Platelet Volume 8.7 6.9-10.8 fL Neutrophils (%) (Auto) 72.6 37.0-80.0 % Lymphocytes (%) (Auto) 17.4 10.0-50.0 % Monocytes (%) (Auto) 7.8 0.0-12.0 % Eosinophils (%) (Auto) 1.8 0.0-7.0 % Basophils (%) (Auto) 0.4 0.0-2.0 % Neutrophils # (Auto) 4.2 1.6-8.6 10 ^3/uL Lymphocytes # (Auto) 1.0 0.4-5.4 10 ^3/uL Monocytes # (Auto) 0.4 0-1.3 10 ^3/uL Eosinophils # (Auto) 0.1 0-0.8 10 ^3/uL Basophils # (Auto) 0 0-0.2 10 ^3/uL Nucleated Red Blood Cells 0.1 % Sodium Level 146 H 136-145 mmol/L Potassium Level 3.4 L 3.5-5.1 mmol/L Chloride Level 110 H 98-107 mmol/L Carbon Dioxide Level 22 20-31 mmol/L Anion Gap 14 5-15 Blood Urea Nitrogen 22 9-23 mg/dL Creatinine 1.02 0.700-1.30 mg/dL Glomerular Filtration Rate Calc 78 >90 mL/min BUN/Creatinine Ratio 21.6 H 10.0-20.0 Serum Glucose 144 H 74-106 mg/dL Calcium Level 9.3 8.7-10.4 mg/dL Total Bilirubin 0.4 0.2-1.0 mg/dL Aspartate Amino Transferase (AST) 15 <34 U/L Alanine Aminotransferase (ALT) 12 7-40 U/L Alkaline Phosphatase 84 46-116 U/L B-Type Natriuretic Peptide 7.55 0-100 pg/mL Total Protein 6.6 5.7-8.2 g/dL Albumin 4.0 3.2-4.8 g/dL Microbiology Date/Time Source Procedure Growth Status 11/16/24 12:24 Other Bronchial Received 11/16/24 10:02 Sputum Gram Stain - Final Resulted 11/16/24 10:02 Sputum Respiratory Culture Pending Resulted Assessment Impression: Acute hypoxic respiratory failure On mechanical ventilator Foreign body in lung Atelectasis Shock Aspiration pneumonia Hx of nicotine dependence Plan: I was emergently called by Dr. Trujillo. Patient with possible aspiration of food/foreign body in lung. Patient was emergently intubated and placed on mechanical ventilator. Patient underwent emergent bronchoscopy to remove foreign body. See separate procedure note for details. Patient on vent, hypoxia with O2 sats in 70s to 80s. Foreign body was removed from left mainstem bronchus. Patient had to have existing ET tube removed and re-intubated to facilitate removal of foreign body. Foreign body was extracted to the oropharynx, extracted with forceps from the oropharynx and removed. Of note, O2 sat improved to 100% once foreign body was removed. On AC mode; RR 16, VT 500, PEEP 10, FiO2 100% Titrate FIO2 to keep O2 saturation above 90%. VAP bundle. Daily ABG and CXR while intubated Sedate for ventilator synchrony ABG reviewed, notable for acidemia. Antibiotics. Follow up cultures. Pressors for hemodynamic support Titrate to keep mean arterial pressure greater than 65 mmHg/SBP above 90 mmHg Monitor renal function Monitor electrolytes. Supplement as necessary. Monitor ins and outs. Maintain euvolemia. GI prophylaxis. DVT prophylaxis. Prognosis: Poor given patient's multiple co-morbidities. Condition: Critical Rest of plan per hospitalist and other consultants. A total of 36 minutes of critical care time was spent reviewing the patient record, examining the patient, making a diagnostic and therapeutic plan, discussing this plan with the medical personnel, following up on diagnostic studies and following the patient for clinical stability excluding any and all procedures. At least 50% of this time was spent in direct, [id number] contact. Thank you, Dr Trujillo, for allowing me to participate in this patient's care. Further recommendations will depend on the patient's clinical course. Please do not hesitate to contact me if you have any questions or concerns. This medical document was created using an electronic medical record system with [employer] dictation system. Although these documentations are being carefully reviewed, there may still be some phonetic and typographical changes. The errors are purely typographical, due to imperfection on the software program, and do not reflect any compromise in the patient's medical care. Plan discussed with: Other (SAKINA Sheriff/LUDIN Estrella/) JOHN ADHIKARI MD Nov 16, 2024 20:17
--- NOTE | 2024-11-16 20:19 | DVHNC2 ---
Procedure - Procedure: Endotracheal Intubation INDICATION: Acute respiratory failure, accessory muscle usage Physician: John Fong MD CONSENT: Emergent procedure. Implied. Patient medications and allergies reviewed. Patient identification and proposed procedure were verified prior to the procedure by the physician, and a nurse in the patient's room. The heart rate, respiratory rate, oxygen saturations, blood pressure, adequacy of pulmonary ventilation, and response to care were monitored throughout the procedure. The physical status of the patient was reassessed after the procedure. PROCEDURE SUMMARY: A time out was performed. My hands were washed immediately prior to the procedure. I wore a surgical cap, mask with protective eyewear, gown and gloves throughout the procedure. The patient was placed on a nail polish brush machine feeder including continuous pulse oximetry. During the bronchoscopy, it was necessary to remove existing ET tube to allow for removal of foreign body. Cricoid pressure was maintained from time induction agent was given to time of cuff balloon inflation. Using a MAC 4 GlideoScope and a size 8.0 endotracheal tube with stylet, the patient was intubated on the 1 attempt. The stylet was removed and cuff balloon was inflated. Appropriate endotracheal tube position was confirmed by direct visualization of vocal cord passage, fogging of the tube, CO2 colorimetric indicator and symmetric breath sounds. The tube was secured at 23 cm at the lips. ET tube placement confirmed immediately via bronchoscopy (see separate procedure note). Post intubation chest x-ray is demonstrates the ETT above the jg. CPT Code: 78798 JOHN FONG MD Nov 16, 2024 20:18
--- NOTE | 2024-11-16 20:20 | DVHNC2 ---
Procedure - Bronchoscopy procedure note: Indications: Left lung collapse, Possible foreign body. Possible aspiration of food/foreign body in lung. Medicines: See RN notes. Complications: None Note, patient was emergently bronch'd to remove foreign body. Patient was on vent, hypoxia with O2 sats in 70s to 80s. Foreign body was removed from left mainstem bronchus. Patient had to have existing ET tube removed and re-intubated to facilitate removal of foreign body (see separate intubation note for full details of that procedure). Foreign body was extracted to the oropharynx, extracted with forceps from the oropharynx and removed. Of note, O2 sat improved to 100% once foreign body was removed. Procedure: Patient medications and allergies reviewed. Procedure was done emergently due to life threatening condition. Patient identification and proposed procedure were verified prior to the procedure by the physician, and a nurse, and the respiratory therapist in ICU room. The heart rate, respiratory rate, oxygen saturations, blood pressure, adequacy of pulmonary ventilation, and response to care were monitored throughout the procedure. The physical status of the patient was reassessed after the procedure. After obtaining informed consent, the bronchoscope was introduced through the endotracheal tube and advanced into the trachea bronchial tree of both lungs. The procedure was accomplished without difficulty. The patient tolerated the procedure well. Findings: The trachea is in normal caliber. The jg is sharp. The tracheobronchial tree of the right lung was examined to at least the first subsegmental level. The bronchial mucosa and anatomy in the right lung are normal. There are no endobronchial lesions. There were no secretions noted. The left upper lobe, lingula, and left lower lobe were examined to at least the first subsegmental level. In left main stem bronchus foreign body noted. It was removed along with ET tube to oropharynx. There with forceps it was extracted out. Patient was re-intubated. See separte procedure note for full details. Bronchoscopy was re-inserted post-intbation to confirm ET tube placement and complete evaluation of lung lung. Bronchial mucosa and anatomy in the left upper lobe and lingula are normal. There were no endobronchial lesions. There was scant whitish secretions from left main stem bronchus onward throughout L1-L10. These were suctioned and removed. There was no active bleeding at the completion of the procedure. Estimated blood loss: Less than 5 mL. Impression: Left lung collapse due to foreign body Removal of foreign body. Recommendation: Pulmonary toileting as necessary. Procedure codes: 76378, bronchoscopy, rigid and flexible, including fluoroscopic guidance, one performed; with bronchial endobronchial removal of foreign body, single or multiple sites JOHN ADHIKARI MD Nov 16, 2024 20:20
[2024-11-16] MEDS: ATORVASTATIN 20 MG TAB PO SCH (22:56)
[2024-11-16] MEDS: POTASSIUM CHL 20MEQ/100ML 100 ML IV SCH (23:05)
[2024-11-16] MEDS: CEFEPIME 1GM/ 50ML 50 ML IV SCH (23:06)
[2024-11-16] MEDS: POTASSIUM CHL 20MEQ/100ML 200 ML IV ONE (23:07)
[2024-11-17] VITALS (104 sets, daily range): BP systolic 72–129; BP diastolic 43–81; PULSE 52–86; RESP 12–17; TEMP 96.8–99.2; O2SAT 96–100
[2024-11-17 06:43] LABS: Base Excess -3.8 mmol/L (-2.0-3.0)
[2024-11-17 06:43] LABS: Basophils # (auto) 0.1 10 ^3/uL (0-0.2); Basophils % (auto) 0.8 % (0.0-2.0); Eosinophils # (auto) 0.2 10 ^3/uL (0-0.8); Eosinophils % (auto) 2.7 % (0.0-7.0); Hematocrit 42.7 % (41.0-53.0); Hemoglobin 14.3 g/dL (13.5-17.5); Lymphocytes # (auto) 1.1 10 ^3/uL (0.4-5.4); Lymphocytes % (auto) 12.4 % (10.0-50.0); Mean Corpuscular Hemoglobin 30.7 pg (28.0-32.0); Mean Corpuscular Hgb Conc. 33.5 g/dL (32.0-36.0); Mean Corpuscular Volume 91.7 fL (80.0-100.0); Monocytes # (auto) 0.9 10 ^3/uL (0-1.3); Monocytes % (auto) 9.9 % (0.0-12.0); Neutrophils # (auto) 6.5 10 ^3/uL (1.6-8.6); Neutrophils % (auto) 74.2 % (37.0-80.0); Nucleated Red Blood Cells % 0.1 %; Platelet Count (auto) 206 10^3/uL (140-450); Red Blood Cells 4.66 10^6/uL (4.5-5.90); Red Cell Distribution Width 14.5 % (11.8-14.3); White Blood Cell 8.7 10^3/uL (4.4-10.8)
[2024-11-17] MEDS: SOD CHL 0.45% 1,000 ML IV SCH (07:00)
[2024-11-17 07:01] LABS: Alanine Aminotransferase 21 U/L (7-40); Albumin 3.6 g/dL (3.2-4.8); Alkaline Phosphatase 86 U/L (46-116); Anion Gap 9 (5-15); Aspartate Aminotransferase 16 U/L (<34); BUN/Creatinine Ratio 21.7 (10.0-20.0); Blood Urea Nitrogen 18 mg/dL (9-23); Calcium 8.8 mg/dL (8.7-10.4); Carbon Dioxide 22 mmol/L (20-31); Potassium 4.3 mmol/L (3.5-5.1); Sodium 145 mmol/L (136-145)
[2024-11-17 07:02] LABS: Bilirubin, Total 0.4 mg/dL (0.2-1.0)
[2024-11-17 07:05] LABS: Chloride 114 mmol/L (98-107); Glucose 121 mg/dL (74-106)
--- NOTE | 2024-11-17 08:16 | DVH ---
EXAM: CT HEAD WITHOUT CONTRAST INDICATION: UNEQUAL PUPILS TECHNIQUE: CT of the head without intravenous contrast. Coronal and sagittal reformatted images are s ubmitted. Radiation Dose : 1. Head: CT Dose: CTDI volume is 58.01 mGy. Dose-length product is 929.94 mGy*cm The dose indicators for CT are the volume Computed Tomography (CT) Dose Index (CTDIvol) and the Dose Length Product (DLP), and are measured in units of mGy and mGy-cm, respectively. These indicators are not patient dose, but values generated from the CT scanner acquisition factors. The report includes radiation exposure data for exposures received during this examination. All CT scans at this medical facility are performed using dose modulation techniques as appropriate to a performed exam including the following: Automated exposure control was utilized; adjustment of the MA and/or KV according to patient size; and use of iterative reconstruction technique. COMPARISON: CT HEAD WITHOUT CONTRAST on DOS: 11/16/24. FINDINGS: There is no evidence of acute intracranial hemorrhage, extra-axial collection, mass effect, midline s hift, herniation or hydrocephalus. Age-indeterminate lacunar infarcts in the bilateral thalami. The ventricles, sulci and cisterns are age appropriate. The teague-white differentiation is intact. The visualized paranasal sinuses and mastoid air cells are clear. No depressed calvarial fracture. The surrounding soft tissues are unremarkable. IMPRESSION: 1. Bilateral thalamic infarcts of indeterminate age. MRI of the brain without intravenous contrast m ay be obtained for further evaluation. 2. No acute intracranial hemorrhage or mass effect.
--- NOTE | 2024-11-17 08:58 | DVH ---
CHEST RADIOGRAPH Indication: ACUTE RESPIRATORY FAILURE Technique: Single frontal view of the chest was obtained COMPARISON: XY CHEST PORTABLE on DOS: 11/16/24, XY CHEST XRAY 1 VIEW on DOS: 11/16/24, XY CHEST PORTABL E on DOS: 11/16/24 FINDINGS: Lines and Tubes: Endotracheal tube and enteric catheter in satisfactory position. Lungs: Improved aeration of the left lung. Pleura: No effusion. No pneumothorax. Cardiomediastinal contours: Unremarkable Bones: Unremarkable IMPRESSION: Improving aeration of the left lung.
[2024-11-17] MEDS: SODIUM CHLORIDE 0.9% 1,000 ML IV ONE (09:00)
[2024-11-17] MEDS: CLOPIDOGREL BISULFATE 75 MG TAB PO SCH (09:27)
[2024-11-17] MEDS: FLUDROCORTISONE ACETATE 0.1 MG TAB PO SCH (09:28)
[2024-11-17] MEDS: SENNA 8.6 MG TAB PO ONE (09:28)
[2024-11-17] MEDS: POLYETHYLENE GLYCOL 17 GM PWDR PO ONE (09:28)
[2024-11-17] MEDS: PANTOPRAZOLE 40 MG/10 ML VIAL INJ IV SCH (09:28)
[2024-11-17] MEDS: ENOXAPARIN SOD 40 MG/0.4 ML SYRINGE SC SCH (09:34)
--- NOTE | 2024-11-17 09:58 | DVHPN2 ---
Assessment/Plan Assessment/Plan ICU note 74 yo M with CVA (?) w/ right sided residual admitted after foreign body aspiration. Patient was intubated, bronched and foreign body was found. Currently on minimal vent settings, still sedated and mechanically ventilated, on pressors. Physical exam Intubated, sedated on mechanical vent Anisocoria (L>R) Gag + Mechanical breath sounds Dry mucous membranes S1 S2 RRR no murmur Abdomen soft No LE edema Labs EKG imaging reviewed Assessment and plan Acute hypoxic RF req mechanical ventilation Foreign body aspiration Aspiration pneumonia Bronchopneumonitis Septic vs distributive shock Hx of CVA with residual R weakness b/l thalamic stroke on MRI Frailty Emphysema by imaging Protein calorie malnutrition Slow transit constipation adrenal insufficiency? NPO today for possible repeat bronch Start TF tomorrow c/w mechanical ventilation c/w pressors, maintain MAP >65 IV bolus bowel regimen c/w vanc and cefepime pulm recs appreciated c/w fludrocortisone nutrition consult resume home meds lines fem TLC (dc) R IJ TLC 11/17 ETT 11/16 NGT moya 11/16 dvt ppx lovenox gi ppx protonix full code diet NPO today condition critical prognosis poor critical care time 90 minutes Plan discussed with: Spouse My Orders Orders - SHARONDA HAYWOOD MD Procedure Category Date Status Time *Consult CONS 11/17/24 Transmitted / 08:48 Enoxaparin Sodium PHA 11/17/24 In Process (Lovenox) 10:00 Sodium Chloride 0.9% PHA 11/17/24 In Process 09:00 Chest Xray 1 View XY 11/17/24 Taken 09:45 Date of Service: Nov 17, 2024 Billing Provider: SHARONDA HAYWOOD MD Common Visit Codes: [id number] CARE 30-74 MIN SHARONDA HAYWOOD MD Nov 17, 2024 09:58
--- NOTE | 2024-11-17 09:58 | DVHNC2 ---
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 Physician Indication: Relpace: line malfunction Counselor Education Professor performed hand hygien: Yes Maximal sterile barrier precau: Mask/Eye shield, Sterile gown, Cap, Sterlie gloves, Large sterlie drape Skin Preparation: Chlorhexidine gluconate Skin preparation completely dr: Yes Insertion site: Right, Internal jugular Central line catheter type: Lru-[id number]-bjp dialysis Number of lumens: 3 Post Assessment: Chest X-Ray, Proper placement Informed consent obtained: Yes Date of Service: Nov 17, 2024 Billing Provider: SHARONDA HAYWOOD MD Common Visit Codes: PROCEDURE ONLY Procedure Codes: [id number] NON-TUNNEL CV CATH SHARONDA HAYWOOD MD Nov 17, 2024 09:58
--- NOTE | 2024-11-17 10:12 | DVH ---
CHEST RADIOGRAPH Indication: RIGHT IJ PLACEMENT Technique: Single frontal view of the chest was obtained COMPARISON: XY CHEST XRAY 1 VIEW on DOS: 11/17/24, XY CHEST PORTABLE on DOS: 11/16/24, XY CHEST XRAY 1 VIEW on DOS: 11/16/24, XY CHEST PORTABLE on DOS: 11/16/24 FINDINGS: Lines and Tubes: Endotracheal tube, enteric catheter and right central venous catheter in satisfactor y position. Lungs: Clear Pleura: No effusion. No pneumothorax. Cardiomediastinal contours: Unremarkable Bones: Unremarkable IMPRESSION: Right central venous catheter in satisfactory position.
--- NOTE | 2024-11-17 16:34 | DVHPN2 ---
Progress Note - Dictate Date Seen: Nov 17, 2024 Has the PT tested + for MRSA If YES, has PT been informed?: Yes Medical Necessity Reason Pt with a Central, PICC or Fol: No vital signs Vital Sign Date Time Temp Pulse Resp B/P (MAP) Pulse Ox O2 Delivery O2 Flow Rate FiO2 11/17/24 16:00 16 99 Mechanical Ventilator+ 30 30 11/17/24 16:00 75 11/17/24 15:50 110/72 11/17/24 15:30 99.2 99.2 11/16/24 09:17 12 Total Intake and Output 11/16/24 11/16/24 11/17/24 15:00 23:00 07:00 Intake Total 1251 ml 140.6375 ml 613.49 ml Output Total 350 ml Balance 1251 ml 140.6375 ml 263.49 ml medications Current Medications Medications Dose Ordered Sig/Zarina Route Start Time Stop Time Status Last Admin Dose Admin Norepinephrine Bitartrate 250 ml @ 3.75 mls/hr Q24H IV 11/16/24 09:30 11/17/24 03:52 15 MLS/HR Propofol 100 ml @ 2.19 mls/hr Q24H IV 11/16/24 09:45 11/17/24 12:56 4.38 MLS/HR Midazolam HCl 50 ml @ 1 mls/hr Q24H IV 11/16/24 09:45 11/17/24 13:39 5 MLS/HR Fentanyl Citrate 250 ml @ 2.5 mls/hr Q24H IV 11/16/24 09:45 11/17/24 15:50 7.5 MLS/HR Acetaminophen 650 mg Q6HP PRN PO 11/16/24 16:30 Vancomycin HCl 0 ml @ 0 mls/hr UD IV 11/16/24 16:30 Cefepime HCl 50 ml @ 12.5 mls/hr Q8H IV 11/16/24 20:00 11/17/24 12:11 12.5 MLS/HR Clopidogrel Bisulfate 75 mg DAILY PO 11/17/24 10:00 11/17/24 09:27 75 MG Atorvastatin Calcium 40 mg HS PO 11/16/24 22:00 11/16/24 22:56 40 MG Vancomycin HCl 100 ml @ 100 mls/hr Q8H IV 11/16/24 19:00 11/17/24 11:14 100 MLS/HR Pantoprazole Sodium 40 mg DAILY IV 11/17/24 10:00 11/17/24 09:28 40 MG Enoxaparin Sodium 40 mg DAILY SC 11/17/24 10:00 11/17/24 09:34 40 MG Hydrocortisone Sodium Succinate 50 mg Q6HR IV 11/17/24 18:00 laboratory and microbiology Laboratory Tests 11/17/24 06:24 Test 11/17/24 06:24 Range/Units Serum Glucose 121 H 74-106 mg/dL Assessment/Plan Acute hypoxemic respiratory failure Left lower lobe pneumonia Aspiration Mechanical ventilation History of CVA Patient seen and examined on the ICU Currently on AC volume control Peep of 6 FiO2 30% Imaging chest x-ray Improved aeration of the left lung Management plan We will rpt bronchoscopy prior to weaning. \ Continue sedation and antibiotics Vent support Adjust settings based on ABGs IV fluids Monitor labs/renal function daily x-rays DVT prophylaxis Family updated Patient is a full code Critical care time 35 minutes Dietary Evaluation Review Comments: 1. Underweight, increase protein needs, [place] Pump in place, offer high protein Tube Feeding, Vital High Protein @45ml/hr providing 94g protein, 1080 kcal 903ml free water. this will meet pt's protein needs 100%, energy needs 87%. If adding Propofol 74.4ml(82kcal) pt's energy will be met @94%. 2. If EN not feasible, TPN per pharmacy to meet his needs 3. CCHO-75 Cardiac diet when pt is extubated and passing a NETWORK DESKTOP SUPPORT SPECIALIST evaluation Expected Outcomes/Goals: Prevent hyperglycemia, prevent weight loss, gradual weight gain Plan discussed with: Spouse ERLINDA TABOR MD Nov 17, 2024 16:34
--- NOTE | 2024-11-17 17:06 | DVH ---
EXAM: MRI BRAIN HEAD WO CONTRAST CLINICAL HISTORY: ALOC, UNEQUAL PUPILS COMPARISON: CT head 11/17/2024 TECHNIQUE: Multiplanar, multisequence magnetic resonance imaging of the brain was performed without intravenous contrast. FINDINGS: Moderate diffuse brain atrophy. Chronic bilateral thalamic and left cerebellar lacunar infarcts. No hemorrhages, masses, mass effect, midline shift, herniation or cytotoxic edema following large vascular territory. No intra-axial or e xtra-axial fluid collections. No evidence of hydrocephalus. The basal cisterns are patent. The pituitary gland, sella and parasellar regions unremarkable. The cerebellar tonsils are in normal position. The cerebellum is unremarkable. The orbits and globes unremarkable. Minimal mucoperiosteal thickening of the maxillary sinuses with m ild mucoperiosteal thickening of the ethmoid air cells. Mucous retention cysts within the left fronta l sinus. Mucosal thickening of the left mastoid. IMPRESSION: No evidence of acute intracranial abnormalities. Chronic lacunar infarcts involving the left cerebellum and bilateral thalami. Left mastoid disease. Mucous retention cyst within the left frontal sinus with bilateral ethmoid and maxillary sinus diseas e.
[2024-11-17] MEDS: HYDROCORTISONE SOD SUCC 100 MG/2ML INJ VIAL IV SCH (17:28)
[2024-11-17] MEDS: VANCOMYCIN 1GM/250ML KIT 250 ML IV SCH (21:06)
[2024-11-17] MEDS: CEFEPIME 1GM/ 50ML 50 ML IV SCH (22:31)
[2024-11-18] VITALS (118 sets, daily range): BP systolic 86–131; BP diastolic 57–80; PULSE 50–100; RESP 16–17; TEMP 97.2–99; O2SAT 95–100
[2024-11-18 04:02] LABS: Basophils # (auto) 0 10 ^3/uL (0-0.2); Basophils % (auto) 0.3 % (0.0-2.0); Eosinophils # (auto) 0 10 ^3/uL (0-0.8); Hematocrit 40.5 % (41.0-53.0); Hemoglobin 13.5 g/dL (13.5-17.5); Lymphocytes # (auto) 0.4 10 ^3/uL (0.4-5.4); Lymphocytes % (auto) 4.9 % (10.0-50.0); Mean Corpuscular Hemoglobin 30.4 pg (28.0-32.0); Mean Corpuscular Hgb Conc. 33.4 g/dL (32.0-36.0); Monocytes # (auto) 0.3 10 ^3/uL (0-1.3); Monocytes % (auto) 3.5 % (0.0-12.0); Neutrophils # (auto) 7.5 10 ^3/uL (1.6-8.6); Neutrophils % (auto) 91.3 % (37.0-80.0); Nucleated Red Blood Cells % 0.1 %; Platelet Count (auto) 204 10^3/uL (140-450); Red Blood Cells 4.46 10^6/uL (4.5-5.90); Red Cell Distribution Width 14.4 % (11.8-14.3); White Blood Cell 8.2 10^3/uL (4.4-10.8)
[2024-11-18 04:11] LABS: Potassium 4.4 mmol/L (3.5-5.1); Sodium 140 mmol/L (136-145)
[2024-11-18 04:12] LABS: Anion Gap 11 (5-15); Carbon Dioxide 20 mmol/L (20-31)
[2024-11-18 04:13] LABS: Calcium 7.9 mg/dL (8.7-10.4); Chloride 109 mmol/L (98-107)
[2024-11-18 04:17] LABS: Blood Urea Nitrogen 14 mg/dL (9-23)
[2024-11-18 04:19] LABS: Glucose 136 mg/dL (74-106); Phosphorus 2.5 mg/dL (2.4-5.1)
--- NOTE | 2024-11-18 05:50 | DVH ---
CHEST RADIOGRAPH Indication: ACUTE RESPIRATORY FAILURE Technique: Single frontal view of the chest was obtained COMPARISON: XY CHEST XRAY 1 VIEW on DOS: 11/17/24, XY CHEST XRAY 1 VIEW on DOS: 11/17/24, XY CHEST PORT ABLE on DOS: 11/16/24, XY CHEST XRAY 1 VIEW on DOS: 11/16/24, XY CHEST PORTABLE on DOS: 11/16/24 FINDINGS: Lines and Tubes: Slight interval advancement of the endotracheal tube such that the tip now projects approximately 2.4 cm above the level of the jg. Remaining lines and tubes are unchanged. Lungs: Chronic appearing bilateral interstitial pulmonary markings without evidence of focal consolid ation. Pleura: No effusion. No pneumothorax. Cardiomediastinal contours: Unremarkable Bones: Unremarkable IMPRESSION: 1. No acute disease. Chronic appearing bilateral interstitial pulmonary markings noted. 2. Slight interval advancement of endotracheal tube as above. Remaining lines and tubes unchanged.
[2024-11-18] MEDS: SODIUM CHLORIDE 0.9% 500 ML IV ONE (09:15)
--- NOTE | 2024-11-18 09:59 | DVHPN2 ---
Assessment/Plan Assessment/Plan ICU note 74 yo M with CVA (?) w/ right sided residual admitted after foreign body aspiration. Patient was intubated, bronched and foreign body was found. Currently on minimal vent settings, still sedated and mechanically ventilated, on pressors. seen today during roudns. possible OR bronch today. scant secretions. hold TF until after bronch Physical exam Intubated, sedated on mechanical vent Anisocoria (L>R) Gag + Mechanical breath sounds Dry mucous membranes S1 S2 RRR no murmur Abdomen soft No LE edema Labs EKG imaging reviewed Assessment and plan Acute hypoxic RF req mechanical ventilation Foreign body aspiration Aspiration pneumonia Bronchopneumonitis Septic vs distributive shock Hx of CVA with residual R weakness b/l thalamic stroke on MRI Frailty Emphysema by imaging Protein calorie malnutrition Slow transit constipation adrenal insufficiency? NPO today for possible repeat bronch Start TF tomorrow c/w mechanical ventilation c/w pressors, maintain MAP >65 IV bolus bowel regimen c/w vanc and cefepime pulm recs appreciated c/w fludrocortisone nutrition consult resume home meds lines fem TLC (dc) R IJ TLC 11/17 ETT 11/16 NGT moya 11/16 dvt ppx lovenox gi ppx protonix full code diet NPO today condition critical prognosis poor critical care time 45 minutes Plan discussed with: Other My Orders Orders - SHARONDA HAYWOOD MD Procedure Category Date Status Time * Non Destructive Testing Supervisor CONS 11/17/24 Transmitted Consult D/C Tlc PREMA 11/17/24 In Process 09:59 Communication Order ORDERS 11/17/24 Transmitted 09:59 Brain Head Wo Contrast MRI 11/17/24 Resulted 10:55 Hydrocortisone PHA 11/17/24 In Process Succinate Inj 18:00 Basic Metabolic Panel LAB 11/19/24 Verified 04:00 Complete Blood Count LAB 11/19/24 Verified 04:00 Magnesium LAB 11/19/24 Verified 04:00 Phosphorus LAB 11/19/24 Verified 04:00 Sodium Chloride 0.9% PHA 11/18/24 In Process 09:15 Date of Service: Nov 18, 2024 Billing Provider: SHARONDA HAYWOOD MD Common Visit Codes: [id number] CARE 30-74 MIN SHARONDA HAYWOOD MD Nov 18, 2024 09:59
[2024-11-18] MEDS ORDERED: GLYCOPYRROLATE 0.2 MG/ML 1ML VIAL ONE (10:23)
[2024-11-18] MEDS ORDERED: LIDOCAINE 2% JELLY 11ml (GLYDO) ONE (10:26)
[2024-11-18] MEDS ORDERED: LIDOCAINE 2%HCL (LOCAL ANESTH.) INJ 20ML MDV ONE (10:26)
[2024-11-18] MEDS ORDERED: MIDAZOLAM HCL 2MG/2ML 2ml VIAL (1mg/ml) ONE (10:26)
[2024-11-18] MEDS ORDERED: EPINEPHrine HCL 1 MG/1 ML AMP ONE (10:26)
[2024-11-18] MEDS ORDERED: fentaNYL CITRATE 100 MCG/2 ML VL ONE (10:27)
[2024-11-18] MEDS ORDERED: NALOXONE HCL 0.4 MG/ML VIAL ONE (10:34)
[2024-11-18] MEDS ORDERED: FLUMAZENIL 0.1 MG/ML INJ 10ML MDV IV ONE (10:34)
--- NOTE | 2024-11-18 14:42 | DVHPN2 ---
Progress Note - Dictate Date Seen: Nov 18, 2024 Has the PT tested + for MRSA If YES, has PT been informed?: Yes Medical Necessity Reason Pt with a Central, PICC or Fol: No vital signs Vital Sign Date Time Temp Pulse Resp B/P (MAP) Pulse Ox O2 Delivery O2 Flow Rate FiO2 11/18/24 13:45 103/70 11/18/24 13:37 65 11/18/24 13:37 16 100 Mechanical Ventilator+ 30 30 11/18/24 13:15 98.4 209.1 11/16/24 09:17 12 Total Intake and Output 11/17/24 11/17/24 11/18/24 14:59 22:59 06:59 Intake Total 394.10 ml 540.66 ml 247.19 ml Output Total 550 ml 650 ml Balance 394.10 ml -9.34 ml -402.81 ml medications Current Medications Medications Dose Ordered Sig/Zarina Route Start Time Stop Time Status Last Admin Dose Admin Norepinephrine Bitartrate 250 ml @ 3.75 mls/hr Q24H IV 11/16/24 09:30 11/18/24 07:26 7.5 MLS/HR Propofol 100 ml @ 2.19 mls/hr Q24H IV 11/16/24 09:45 11/18/24 10:04 6.57 MLS/HR Midazolam HCl 50 ml @ 1 mls/hr Q24H IV 11/16/24 09:45 11/18/24 07:26 5 MLS/HR Fentanyl Citrate 250 ml @ 2.5 mls/hr Q24H IV 11/16/24 09:45 11/17/24 15:50 7.5 MLS/HR Acetaminophen 650 mg Q6HP PRN PO 11/16/24 16:30 Vancomycin HCl 0 ml @ 0 mls/hr UD IV 11/16/24 16:30 Clopidogrel Bisulfate 75 mg DAILY PO 11/17/24 10:00 11/18/24 08:24 75 MG Atorvastatin Calcium 40 mg HS PO 11/16/24 22:00 11/17/24 21:06 40 MG Pantoprazole Sodium 40 mg DAILY IV 11/17/24 10:00 11/18/24 08:24 40 MG Enoxaparin Sodium 40 mg DAILY SC 11/17/24 10:00 11/18/24 08:24 40 MG Hydrocortisone Sodium Succinate 50 mg Q6HR IV 11/17/24 18:00 11/18/24 12:26 50 MG Vancomycin HCl 250 ml @ 250 mls/hr Q12H IV 11/17/24 21:00 11/18/24 09:00 250 MLS/HR Cefepime HCl 50 ml @ 12.5 mls/hr Q8HR IV 11/17/24 22:00 11/18/24 12:26 12.5 MLS/HR laboratory and microbiology Laboratory Tests 11/18/24 03:45 Test 11/18/24 03:45 Range/Units Serum Glucose 136 H 74-106 mg/dL Assessment/Plan Impression Acute hypoxemic respiratory failure Left lower lobe pneumonia Aspiration Hx of CVA Patient seen and examined in ICU Events On mechanical ventilation S/p intubation PEEP 5, FiO2 30% Bronchoscopy was performed at the bedside See separate note for procedure in detail Labs and imaging reviewed ABG reviewed Management Vent support Titrate to maintain sats 90% or above Sedation holiday If patient follows commands, proceed to weaning trial Pressure support 12/02, extubate when ready Continue antibiotics F/u cultures Bronchodilators Monitor renal function Monitor electrolytes Supplement as needed Pressors as needed for hemodynamic support To maintain a mean arterial pressure of 65 mmHg DVT prophylaxis Critical care time 35 minutes Dietary Evaluation Review Comments: 1. Underweight, increase protein needs, [place] Pump in place, offer high protein Tube Feeding, Vital High Protein @45ml/hr providing 94g protein, 1080 kcal 903ml free water. this will meet pt's protein needs 100%, energy needs 87%. If adding Propofol 74.4ml(82kcal) pt's energy will be met @94%. 2. If EN not feasible, TPN per pharmacy to meet his needs 3. CCHO-75 Cardiac diet when pt is extubated and passing a CLOTH TESTER evaluation Expected Outcomes/Goals: Prevent hyperglycemia, prevent weight loss, gradual weight gain Plan discussed with: Other (Rn) ERLINDA TABOR MD Nov 18, 2024 14:42
--- NOTE | 2024-11-18 14:44 | DVHNC2 ---
Procedure - Procedure- Bronchoscopy and bronchial washings Indication- Secretions Procedure in detail Consent was obtained and timeout performed per protocol. The patient was placed on 100% FiO2. Olympus bronchoscope was used and passed through the endotracheal tube, tracheobronchial tree was examined. There were blood clots which appeared to be old in the airways that were loosened up with approximately 50 cc of normal saline and thoroughly suctioned into a separate specimen container. There were no endobronchial lesions however, mucosa appeared easily friable, edematous and pale. After the procedure, the scope was removed. Patient tolerated the procedure well. ERLINDA TABOR MD Nov 18, 2024 14:44
[2024-11-18] MEDS: VANCOMYCIN 1GM/200ML PM 200 ML IV ONE (21:33)
[2024-11-19] VITALS (109 sets, daily range): BP systolic 98–127; BP diastolic 60–93; PULSE 55–76; RESP 9–18; TEMP 96.3–99; O2SAT 97–100
--- NOTE | 2024-11-19 01:59 | DVH ---
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 COMPARISON: XY CHEST XRAY 1 VIEW on DOS: 11/18/24, XY CHEST XRAY 1 VIEW on DOS: 11/17/24, XY CHEST XRAY 1 VIEW on DOS: 11/17/24, XY CHEST PORTABLE on DOS: 11/16/24, XY CHEST XRAY 1 VIEW on DOS: 11/16/24 FINDINGS/IMPRESSION: Unchanged support devices including endotracheal tube, nasogastric tube, and right central venous cat heter. Redemonstrated prominence of the interstitial markings. Unchanged cardiomediastinal silhouette . No pleural effusion or pneumothorax. Unchanged osseous structures.
[2024-11-19 03:18] LABS: Basophils # (auto) 0 10 ^3/uL (0-0.2); Basophils % (auto) 0.2 % (0.0-2.0); Eosinophils # (auto) 0 10 ^3/uL (0-0.8); Eosinophils % (auto) 0.1 % (0.0-7.0); Hematocrit 38.6 % (41.0-53.0); Lymphocytes # (auto) 0.4 10 ^3/uL (0.4-5.4); Lymphocytes % (auto) 6.5 % (10.0-50.0); Mean Corpuscular Hemoglobin 30.6 pg (28.0-32.0); Mean Corpuscular Hgb Conc. 33.7 g/dL (32.0-36.0); Mean Corpuscular Volume 90.7 fL (80.0-100.0); Monocytes # (auto) 0.3 10 ^3/uL (0-1.3); Monocytes % (auto) 4.4 % (0.0-12.0); Neutrophils # (auto) 6.1 10 ^3/uL (1.6-8.6); Neutrophils % (auto) 88.8 % (37.0-80.0); Platelet Count (auto) 168 10^3/uL (140-450); Red Blood Cells 4.25 10^6/uL (4.5-5.90); Red Cell Distribution Width 14.2 % (11.8-14.3); White Blood Cell 6.9 10^3/uL (4.4-10.8)
[2024-11-19 03:25] LABS: Anion Gap 9 (5-15); Carbon Dioxide 24 mmol/L (20-31); Chloride 106 mmol/L (98-107); Potassium 3.8 mmol/L (3.5-5.1); Sodium 139 mmol/L (136-145)
[2024-11-19 03:31] LABS: Blood Urea Nitrogen 13 mg/dL (9-23); Calcium 7.8 mg/dL (8.7-10.4); Glucose 118 mg/dL (74-106); Magnesium 2.1 mg/dL (1.6-2.6)
[2024-11-19 03:35] LABS: Phosphorus 1.6 mg/dL (2.4-5.1)
[2024-11-19 04:18] LABS: BUN/Creatinine Ratio 21.7 (10.0-20.0)
[2024-11-19 07:02] LABS: Base Excess -5.7 mmol/L (-2.0-3.0)
--- NOTE | 2024-11-19 13:15 | DVHPN2 ---
Assessment/Plan Assessment/Plan ICU note 74 yo M with CVA (?) w/ right sided residual admitted after foreign body aspiration. Patient was intubated, bronched and foreign body was found. Currently on minimal vent settings, still sedated and mechanically ventilated, on pressors. seen today during roudns. off pressors, CPAP today. start tube feeding Physical exam Intubated, sedated on mechanical vent Anisocoria (L>R) Gag + Mechanical breath sounds Dry mucous membranes S1 S2 RRR no murmur Abdomen soft No LE edema Labs EKG imaging reviewed Assessment and plan Acute hypoxic RF req mechanical ventilation Foreign body aspiration Aspiration pneumonia Bronchopneumonitis Septic vs distributive shock Hx of CVA with residual R weakness b/l thalamic stroke on MRI Frailty Emphysema by imaging Protein calorie malnutrition Slow transit constipation adrenal insufficiency? NPO today for possible repeat bronch Start TF tomorrow c/w mechanical ventilation c/w pressors, maintain MAP >65 IV bolus bowel regimen c/w vanc and cefepime pulm recs appreciated c/w hydrocort nutrition consult resume home meds start glucerna daily SAT SBT lines fem TLC (dc) R IJ TLC 11/17 ETT 11/16 NGT moya 11/16 dvt ppx lovenox gi ppx protonix full code diet TF condition critical prognosis poor critical care time 45 minutes Plan discussed with: Other My Orders Orders - SHARONDA HAYWOOD MD Procedure Category Date Status Time Cpap Trial For Am ORDERS 11/19/24 Transmitted 12:22 Nutritional PHA 11/19/24 Logged Supplements (Glucerna 12:30 Date of Service: Nov 19, 2024 Billing Provider: SHARONDA HAYWOOD MD Common Visit Codes: [id number] CARE 30-74 MIN SHARONDA HAYWOOD MD Nov 19, 2024 13:15
[2024-11-19] MEDS: Glucerna 1.2 Cal 1Liter BOTTLE GT SCH (16:07)
--- NOTE | 2024-11-19 16:29 | DVHPN2 ---
Progress Note - Dictate Date Seen: Nov 19, 2024 Has the PT tested + for MRSA If YES, has PT been informed?: Yes Medical Necessity Reason Pt with a Central, PICC or Fol: No vital signs Vital Sign Date Time Temp Pulse Resp B/P (MAP) Pulse Ox O2 Delivery O2 Flow Rate FiO2 11/19/24 16:18 58 16 112/68 (83) 99 30 11/19/24 14:30 99.0 210.2 11/19/24 14:00 Mechanical Ventilator+ Total Intake and Output 11/18/24 11/18/24 11/19/24 15:00 23:00 07:00 Intake Total 113.95 ml 307.52 ml 167.52 ml Output Total 400 ml 550 ml Balance 113.95 ml -92.48 ml -382.48 ml medications Current Medications Medications Dose Ordered Sig/Zarina Route Start Time Stop Time Status Last Admin Dose Admin Norepinephrine Bitartrate 250 ml @ 3.75 mls/hr Q24H IV 11/16/24 09:30 11/18/24 07:26 7.5 MLS/HR Propofol 100 ml @ 2.19 mls/hr Q24H IV 11/16/24 09:45 11/18/24 10:04 6.57 MLS/HR Midazolam HCl 50 ml @ 1 mls/hr Q24H IV 11/16/24 09:45 11/18/24 07:26 5 MLS/HR Fentanyl Citrate 250 ml @ 2.5 mls/hr Q24H IV 11/16/24 09:45 11/19/24 05:05 5 MLS/HR Acetaminophen 650 mg Q6HP PRN PO 11/16/24 16:30 Vancomycin HCl 0 ml @ 0 mls/hr UD IV 11/16/24 16:30 Clopidogrel Bisulfate 75 mg DAILY PO 11/17/24 10:00 11/19/24 09:53 75 MG Atorvastatin Calcium 40 mg HS PO 11/16/24 22:00 11/18/24 21:32 40 MG Pantoprazole Sodium 40 mg DAILY IV 11/17/24 10:00 11/19/24 09:53 40 MG Enoxaparin Sodium 40 mg DAILY SC 11/17/24 10:00 11/19/24 09:53 40 MG Hydrocortisone Sodium Succinate 50 mg Q6HR IV 11/17/24 18:00 11/19/24 12:03 50 MG Cefepime HCl 50 ml @ 12.5 mls/hr Q8HR IV 11/17/24 22:00 11/19/24 14:18 12.5 MLS/HR Vancomycin HCl 250 ml @ 200 mls/hr Q12H IV 11/19/24 21:00 Enteral Nutritional Formula 1,000 ml 30ML/HR GT 11/19/24 12:30 11/19/24 16:07 1,000 ML laboratory and microbiology Laboratory Tests 11/19/24 03:05 Test 11/19/24 03:05 Range/Units Serum Glucose 118 H 74-106 mg/dL Assessment/Plan Impression Acute hypoxemic respiratory failure Left lower lobe pneumonia Aspiration Hx of CVA Patient seen and examined in ICU Events On mechanical ventilation S/p intubation PEEP 5, FiO2 30% S/p bronchoscopy Labs and imaging reviewed ABG reviewed Management Vent support Titrate to maintain sats 90% or above Sedation holiday daily If patient follows commands, proceed to weaning trial Pressure support 12/02, extubate when ready Continue antibiotics F/u cultures Bronchodilators Monitor renal function Monitor electrolytes Supplement as needed Pressors as needed for hemodynamic support To maintain a mean arterial pressure of 65 mmHg DVT prophylaxis Critical care time 35 minutes Dietary Evaluation Review Comments: 1. Underweight, increase protein needs, [place] Pump in place, offer high protein Tube Feeding, Vital High Protein @45ml/hr providing 94g protein, 1080 kcal 903ml free water. this will meet pt's protein needs 100%, energy needs 87%. If adding Propofol 74.4ml(82kcal) pt's energy will be met @94%. 2. If EN not feasible, TPN per pharmacy to meet his needs 3. CCHO-75 Cardiac diet when pt is extubated and passing a ENCAPSULATOR evaluation Expected Outcomes/Goals: Prevent hyperglycemia, prevent weight loss, gradual weight gain Plan discussed with: Other (Rn) ERLINDA TABOR MD Nov 19, 2024 16:29
[2024-11-19] MEDS: VANCOMYCIN 1.25GM/250ML 250 ML IV SCH (21:03)
[2024-11-20] VITALS (105 sets, daily range): BP systolic 84–133; BP diastolic 54–85; PULSE 47–79; RESP 8–26; TEMP 97.5–99.7; O2SAT 89–100
[2024-11-20 03:29] LABS: Anion Gap 8 (5-15); Carbon Dioxide 27 mmol/L (20-31); Chloride 104 mmol/L (98-107); Sodium 139 mmol/L (136-145)
[2024-11-20 03:32] LABS: Basophils # (auto) 0 10 ^3/uL (0-0.2); Basophils % (auto) 0.2 % (0.0-2.0); Eosinophils # (auto) 0 10 ^3/uL (0-0.8); Eosinophils % (auto) 0.1 % (0.0-7.0); Hematocrit 36.8 % (41.0-53.0); Hemoglobin 12.8 g/dL (13.5-17.5); Lymphocytes # (auto) 0.4 10 ^3/uL (0.4-5.4); Lymphocytes % (auto) 7.6 % (10.0-50.0); Mean Corpuscular Hemoglobin 31.1 pg (28.0-32.0); Mean Corpuscular Hgb Conc. 34.7 g/dL (32.0-36.0); Mean Corpuscular Volume 89.5 fL (80.0-100.0); Monocytes # (auto) 0.4 10 ^3/uL (0-1.3); Monocytes % (auto) 6.5 % (0.0-12.0); Neutrophils # (auto) 4.7 10 ^3/uL (1.6-8.6); Neutrophils % (auto) 85.6 % (37.0-80.0); Nucleated Red Blood Cells % 0.2 %; Platelet Count (auto) 183 10^3/uL (140-450); Red Blood Cells 4.11 10^6/uL (4.5-5.90); Red Cell Distribution Width 14.1 % (11.8-14.3); White Blood Cell 5.5 10^3/uL (4.4-10.8)
[2024-11-20 03:34] LABS: Calcium 7.8 mg/dL (8.7-10.4); Potassium 3.3 mmol/L (3.5-5.1)
[2024-11-20 03:35] LABS: BUN/Creatinine Ratio 27.6 (10.0-20.0); Blood Urea Nitrogen 16 mg/dL (9-23); Glucose 140 mg/dL (74-106); Magnesium 2.1 mg/dL (1.6-2.6)
[2024-11-20 03:37] LABS: Phosphorus 1.6 mg/dL (2.4-5.1)
[2024-11-20 06:16] LABS: Base Excess 0.5 mmol/L (-2.0-3.0)
--- NOTE | 2024-11-20 08:19 | DVH ---
EXAM: XR Chest, 1 View CLINICAL INDICATION: Pain TECHNIQUE: Frontal view of the chest. COMPARISON: No relevant prior studies available. FINDINGS: LUNGS AND PLEURAL SPACES: Pulmonary venous congestion. No consolidation. No pneumothorax. HEART: Unremarkable. No cardiomegaly. MEDIASTINUM: Unremarkable. Normal mediastinal contour. BONES/JOINTS: Unremarkable. No acute fracture. TUBES, LINES AND DEVICES: Right internal jugular central venous catheter tip in the superior vena ca va. The endotracheal tube (ETT) is in satisfactory position. Enteric tube tip cannot be seen but is below the diaphragm. IMPRESSION: Pulmonary venous congestion.
[2024-11-20] MEDS ORDERED: POTASSIUM CHL 20MEQ/100ML 100 ML IV SCH (09:15)
--- NOTE | 2024-11-20 10:24 | DVHPN2 ---
Assessment/Plan Assessment/Plan ICU note 74 yo M with CVA (?) w/ right sided residual admitted after foreign body aspiration. Patient was intubated, bronched and foreign body was found. Currently on minimal vent settings, still sedated and mechanically ventilated, on pressors. seen today during roudns. bowel regimen. CPAP trial Physical exam Intubated, sedated on mechanical vent Anisocoria (L>R) Gag + Mechanical breath sounds Dry mucous membranes S1 S2 RRR no murmur Abdomen soft No LE edema Labs EKG imaging reviewed Assessment and plan Acute hypoxic RF req mechanical ventilation Foreign body aspiration Aspiration pneumonia Bronchopneumonitis Septic vs distributive shock Hx of CVA with residual R weakness b/l thalamic stroke on MRI Frailty Emphysema by imaging Protein calorie malnutrition Slow transit constipation adrenal insufficiency? NPO today for possible repeat bronch Start TF tomorrow c/w mechanical ventilation c/w pressors, maintain MAP >65 IV bolus bowel regimen c/w vanc and cefepime pulm recs appreciated c/w hydrocort nutrition consult resume home meds start glucerna daily SAT SBT bowel reg lines fem TLC (dc) R IJ TLC 11/17 ETT 11/16 NGT moya 11/16 dvt ppx lovenox gi ppx protonix full code diet TF condition critical prognosis poor critical care time 45 minutes Plan discussed with: Other My Orders Orders - SHARONDA HAYWOOD MD Procedure Category Date Status Time Cpap Trial For Am ORDERS 11/19/24 Transmitted 12:22 Nutritional PHA 11/19/24 In Process Supplements (Glucerna 12:30 Tube Feeding DIET 11/19/24 Transmitted Lunch Potassium Chl PHA 11/20/24 Logged 20meq/100ml 09:15 Potassium Phosphate PHA 11/20/24 Verified 10:30 Polyethylene Glycol PHA 11/21/24 Verified 17g Powder (Miralax 10:00 Polyethylene Glycol PHA 11/20/24 Verified 17g Powder (Miralax 10:30 Bisacodyl Suppository PHA 11/20/24 Verified (Dulcolax Supposit 10:30 Date of Service: Nov 20, 2024 Billing Provider: SHARONDA HAYWOOD MD Common Visit Codes: [id number] CARE 30-74 MIN SHARONDA HAYWOOD MD Nov 20, 2024 10:24
[2024-11-20] MEDS: POLYETHYLENE GLYCOL 17 GM PWDR PO ONE (12:24)
[2024-11-20] MEDS: BISACODYL 10 MG RECT SUPP PR ONE (12:25)
[2024-11-20] MEDS: POTASSIUM PHOSPHATE 44 MEQ in D5W 5% 250 ML IV ONE (14:22)
[2024-11-20] MEDS: Glucerna 1.2 Cal 1Liter BOTTLE GT SCH (16:00)
--- NOTE | 2024-11-20 19:00 | DVHPN2 ---
Progress Note - Dictate Date Seen: Nov 20, 2024 Has the PT tested + for MRSA If YES, has PT been informed?: Yes Medical Necessity Reason Pt with a Central, PICC or Fol: No vital signs Vital Sign Date Time Temp Pulse Resp B/P (MAP) Pulse Ox O2 Delivery O2 Flow Rate FiO2 11/20/24 18:45 99.1 65 18 104/67 (79) 98 210.4 11/20/24 18:35 30 11/20/24 18:00 Mechanical Ventilator+ Total Intake and Output 11/19/24 11/19/24 11/20/24 15:00 23:00 07:00 Intake Total 335.95 ml 441.90 ml 329.45 ml Output Total 400 ml 400 ml Balance 335.95 ml 41.90 ml -70.55 ml medications Current Medications Medications Dose Ordered Sig/Zarina Route Start Time Stop Time Status Last Admin Dose Admin Norepinephrine Bitartrate 250 ml @ 3.75 mls/hr Q24H IV 11/16/24 09:30 11/18/24 07:26 7.5 MLS/HR Propofol 100 ml @ 2.19 mls/hr Q24H IV 11/16/24 09:45 11/18/24 10:04 6.57 MLS/HR Midazolam HCl 50 ml @ 1 mls/hr Q24H IV 11/16/24 09:45 11/18/24 07:26 5 MLS/HR Fentanyl Citrate 250 ml @ 2.5 mls/hr Q24H IV 11/16/24 09:45 11/19/24 05:05 5 MLS/HR Acetaminophen 650 mg Q6HP PRN PO 11/16/24 16:30 Vancomycin HCl 0 ml @ 0 mls/hr UD IV 11/16/24 16:30 Clopidogrel Bisulfate 75 mg DAILY PO 11/17/24 10:00 11/20/24 10:02 75 MG Atorvastatin Calcium 40 mg HS PO 11/16/24 22:00 11/19/24 22:08 40 MG Pantoprazole Sodium 40 mg DAILY IV 11/17/24 10:00 11/20/24 10:01 40 MG Enoxaparin Sodium 40 mg DAILY SC 11/17/24 10:00 11/20/24 10:02 40 MG Hydrocortisone Sodium Succinate 50 mg Q6HR IV 11/17/24 18:00 11/20/24 18:13 50 MG Cefepime HCl 50 ml @ 12.5 mls/hr Q8HR IV 11/17/24 22:00 11/20/24 14:22 12.5 MLS/HR Vancomycin HCl 250 ml @ 200 mls/hr Q12H IV 11/19/24 21:00 11/20/24 09:22 200 MLS/HR Polyethylene Glycol 17 gm DAILY PO 11/21/24 10:00 Enteral Nutritional Formula 1,000 ml 50ML/HR GT 11/20/24 16:15 11/20/24 16:00 1,000 ML laboratory and microbiology Laboratory Tests 11/20/24 03:03 Test 11/20/24 03:03 Range/Units Serum Glucose 140 H 74-106 mg/dL Assessment/Plan Impression Acute hypoxemic respiratory failure Left lower lobe pneumonia Aspiration Hx of CVA Patient seen and examined in ICU Events On mechanical ventilation S/p intubation PEEP 5, FiO2 30% Awake, following commands Patient failed weaning trial due to apnea S/p bronchoscopy Labs and imaging reviewed ABG reviewed Management Vent support Titrate to maintain sats 90% or above Sedation holiday daily If patient follows commands, proceed to weaning trial Pressure support 12/02, extubate when ready Continue antibiotics F/u cultures Bronchodilators Monitor renal function Monitor electrolytes Supplement as needed Pressors as needed for hemodynamic support To maintain a mean arterial pressure of 65 mmHg DVT prophylaxis Critical care time 35 minutes Dietary Evaluation Review Comments: 1. Underweight, increase protein needs, [place] Pump in place, offer high protein Tube Feeding, Vital High Protein @45ml/hr providing 94g protein, 1080 kcal 903ml free water. this will meet pt's protein needs 100%, energy needs 87%. If adding Propofol 74.4ml(82kcal) pt's energy will be met @94%. 2. If EN not feasible, TPN per pharmacy to meet his needs 3. CCHO-75 Cardiac diet when pt is extubated and passing a SLICE PLUG CUTTER OPERATOR evaluation Expected Outcomes/Goals: Prevent hyperglycemia, prevent weight loss, gradual weight gain Plan discussed with: Other (Rn) ERLINDA TABOR MD Nov 20, 2024 19:00
[2024-11-21] VITALS (100 sets, daily range): BP systolic 90–125; BP diastolic 56–81; PULSE 56–86; RESP 6–26; TEMP 51.1–99.7; O2SAT 94–100
[2024-11-21 03:44] LABS: Basophils # (auto) 0.1 10 ^3/uL (0-0.2); Eosinophils # (auto) 0 10 ^3/uL (0-0.8); Eosinophils % (auto) 0.1 % (0.0-7.0); Hematocrit 39.8 % (41.0-53.0); Hemoglobin 13.6 g/dL (13.5-17.5); Lymphocytes # (auto) 0.4 10 ^3/uL (0.4-5.4); Lymphocytes % (auto) 4.4 % (10.0-50.0); Mean Corpuscular Hemoglobin 30.7 pg (28.0-32.0); Mean Corpuscular Hgb Conc. 34.2 g/dL (32.0-36.0); Mean Corpuscular Volume 89.7 fL (80.0-100.0); Monocytes # (auto) 0.6 10 ^3/uL (0-1.3); Monocytes % (auto) 6.7 % (0.0-12.0); Neutrophils # (auto) 7.3 10 ^3/uL (1.6-8.6); Neutrophils % (auto) 87.8 % (37.0-80.0); Platelet Count (auto) 217 10^3/uL (140-450); Red Blood Cells 4.44 10^6/uL (4.5-5.90); Red Cell Distribution Width 13.8 % (11.8-14.3); White Blood Cell 8.3 10^3/uL (4.4-10.8)
[2024-11-21 03:45] LABS: Anion Gap 9 (5-15); Carbon Dioxide 27 mmol/L (20-31); Chloride 104 mmol/L (98-107); Sodium 140 mmol/L (136-145)
[2024-11-21 03:51] LABS: Blood Urea Nitrogen 13 mg/dL (9-23); Magnesium 2.1 mg/dL (1.6-2.6)
[2024-11-21 03:56] LABS: Calcium 7.8 mg/dL (8.7-10.4); Glucose 145 mg/dL (74-106); Phosphorus 1.8 mg/dL (2.4-5.1); Potassium 2.8 mmol/L (3.5-5.1)
[2024-11-21 07:38] LABS: Base Excess 2.7 mmol/L (-2.0-3.0)
[2024-11-21] MEDS: POTASSIUM PHOSPHATE 44 MEQ in D5W 5% 250 ML IV ONE ×2 (08:05→16:20)
[2024-11-21] MEDS: POLYETHYLENE GLYCOL 17 GM PWDR PO SCH (09:28)
--- NOTE | 2024-11-21 10:34 | DVHPN2 ---
Assessment/Plan Assessment/Plan ICU note 74 yo M with CVA (?) w/ right sided residual admitted after foreign body aspiration. Patient was intubated, bronched and foreign body was found. Currently on minimal vent settings, still sedated and mechanically ventilated, on pressors. seen today during roudns. doing well n SBT, good parameters, following commands. extuabted to cool mist. Physical exam follows command Anisocoria (L>R) Gag + clear breath sounds MMM S1 S2 RRR no murmur Abdomen soft No LE edema Labs EKG imaging reviewed Assessment and plan Acute hypoxic RF req mechanical ventilation Foreign body aspiration Aspiration pneumonia Bronchopneumonitis Septic vs distributive shock Hx of CVA with residual R weakness b/l thalamic stroke on MRI Frailty Emphysema by imaging Protein calorie malnutrition Slow transit constipation adrenal insufficiency? NPO today for possible repeat bronch Start TF tomorrow c/w mechanical ventilation c/w pressors, maintain MAP >65 IV bolus bowel regimen c/w vanc and cefepime pulm recs appreciated c/w hydrocort nutrition consult resume home meds start glucerna daily SAT SBT bowel reg lines fem TLC (dc) R IJ TLC 11/17 ETT 11/16 extubated NGT rem moya 11/16 dvt ppx lovenox gi ppx protonix full code diet TF condition critical prognosis poor critical care time 55 minutes Plan discussed with: Patient, Spouse My Orders Orders - SHARONDA HAYWOOD MD Procedure Category Date Status Time Respiratory Misc. RT 11/20/24 Transmitted Order 10:00 Nutritional PHA 11/20/24 In Process Supplements (Glucerna 16:15 Abg W/ Co-Ox RT 11/21/24 Logged 07:00 Potassium Phosphate PHA 11/21/24 Logged 09:45 Date of Service: Nov 21, 2024 Billing Provider: SHARONDA HAYWOOD MD Common Visit Codes: [id number] CARE 30-74 MIN SHARONDA HAYWOOD MD Nov 21, 2024 10:34
[2024-11-21 12:16] LABS: Base Excess 2.3 mmol/L (-2.0-3.0)
--- NOTE | 2024-11-21 12:43 | DVHPN2 ---
Progress Note - Dictate Date Seen: Nov 21, 2024 Has the PT tested + for MRSA If YES, has PT been informed?: Yes Medical Necessity Reason Pt with a Central, PICC or Fol: No vital signs Vital Sign Date Time Temp Pulse Resp B/P (MAP) Pulse Ox O2 Delivery O2 Flow Rate FiO2 11/21/24 10:30 98.8 70 13 113/77 (89) 98 209.8 11/21/24 10:00 30 11/21/24 10:00 Mechanical Ventilator+ Total Intake and Output 11/20/24 11/20/24 11/21/24 14:59 22:59 06:59 Intake Total 314 ml 446 ml 650 ml Output Total 575 ml 1350 ml Balance 314 ml -129 ml -700 ml medications Current Medications Medications Dose Ordered Sig/Zarina Route Start Time Stop Time Status Last Admin Dose Admin Norepinephrine Bitartrate 250 ml @ 3.75 mls/hr Q24H IV 11/16/24 09:30 11/18/24 07:26 7.5 MLS/HR Propofol 100 ml @ 2.19 mls/hr Q24H IV 11/16/24 09:45 11/18/24 10:04 6.57 MLS/HR Midazolam HCl 50 ml @ 1 mls/hr Q24H IV 11/16/24 09:45 11/18/24 07:26 5 MLS/HR Fentanyl Citrate 250 ml @ 2.5 mls/hr Q24H IV 11/16/24 09:45 11/19/24 05:05 5 MLS/HR Acetaminophen 650 mg Q6HP PRN PO 11/16/24 16:30 Vancomycin HCl 0 ml @ 0 mls/hr UD IV 11/16/24 16:30 Clopidogrel Bisulfate 75 mg DAILY PO 11/17/24 10:00 11/21/24 09:58 75 MG Atorvastatin Calcium 40 mg HS PO 11/16/24 22:00 11/20/24 21:34 40 MG Pantoprazole Sodium 40 mg DAILY IV 11/17/24 10:00 11/21/24 09:56 40 MG Enoxaparin Sodium 40 mg DAILY SC 11/17/24 10:00 11/21/24 09:57 40 MG Hydrocortisone Sodium Succinate 50 mg Q6HR IV 11/17/24 18:00 11/21/24 12:11 50 MG Cefepime HCl 50 ml @ 12.5 mls/hr Q8HR IV 11/17/24 22:00 11/21/24 05:34 12.5 MLS/HR Vancomycin HCl 250 ml @ 200 mls/hr Q12H IV 11/19/24 21:00 11/21/24 09:01 200 MLS/HR Polyethylene Glycol 17 gm DAILY PO 11/21/24 10:00 Enteral Nutritional Formula 1,000 ml 50ML/HR GT 11/20/24 16:15 11/20/24 16:00 1,000 ML laboratory and microbiology Laboratory Tests 11/21/24 03:02 Test 11/21/24 03:02 Range/Units Serum Glucose 145 H 74-106 mg/dL Assessment/Plan Impression Acute hypoxemic respiratory failure Left lower lobe pneumonia Aspiration Hx of CVA Patient seen and examined in ICU Events Patient was successfully weaned from mechanical ventilation S/p extubation, transitioned to cool aerosol mask No distress S/p bronchoscopy Labs and imaging reviewed ABG reviewed Management Supplemental oxygen Titrate to maintain sats 90% or above Incentive spirometry Aspiration precautions Swallow evaluation Continue antibiotics F/u cultures Bronchodilators Monitor renal function Monitor electrolytes Supplement as needed DVT prophylaxis Critical care time 35 minutes Dietary Evaluation Review Comments: 1. Underweight, increase protein needs, [place] Pump in place, offer high protein Tube Feeding, Vital High Protein @45ml/hr providing 94g protein, 1080 kcal 903ml free water. this will meet pt's protein needs 100%, energy needs 87%. If adding Propofol 74.4ml(82kcal) pt's energy will be met @94%. 2. If EN not feasible, TPN per pharmacy to meet his needs 3. CCHO-75 Cardiac diet when pt is extubated and passing a PREPARING BOX TENDER evaluation Expected Outcomes/Goals: Prevent hyperglycemia, prevent weight loss, gradual weight gain Plan discussed with: Other (Rn) ERLINDA TABOR MD Nov 21, 2024 12:43
--- NOTE | 2024-11-21 14:15 | ECG ---
[facility] Test Date: 2024-11-16 Test Time: 09:14:38 Pat Name: NORM UNGER Department: ED Room: [address] [place] [address] A Gender: M Data Governance Consultant: JEN : [id number] Requested By: STEVE KAM Order Number: [id number] Reading MD: Mick Vázquez Measurements Intervals [place] Rate: 96 P: 77 MS: 159 QRS: -61 QRSD: 61 T: 0 QT: 436 QTc: 552 Interpretive Statements Sinus rhythm Left anterior fascicular block Borderline low voltage, extremity leads Abnormal R-wave progression, early transition Nonspecific repol abnormality, anterior leads Prolonged QT interval Electronically Signed On 11-21-2024 22:27:56 PDT by Mick Vázquez Please click the below link to view image of tracing.
[2024-11-21] MEDS: D5W/LACTATED RINGERS 1,000 ML IV SCH (16:19)
[2024-11-22] VITALS (71 sets, daily range): BP systolic 87–118; BP diastolic 50–77; PULSE 52–79; RESP 9–22; TEMP 97.7–98.6; O2SAT 94–100
[2024-11-22 03:44] LABS: Basophils # (auto) 0 10 ^3/uL (0-0.2); Eosinophils # (auto) 0 10 ^3/uL (0-0.8); Eosinophils % (auto) 0.1 % (0.0-7.0); Hematocrit 37.7 % (41.0-53.0); Hemoglobin 12.9 g/dL (13.5-17.5); Lymphocytes # (auto) 0.4 10 ^3/uL (0.4-5.4); Lymphocytes % (auto) 6.6 % (10.0-50.0); Mean Corpuscular Hemoglobin 30.4 pg (28.0-32.0); Mean Corpuscular Hgb Conc. 34.1 g/dL (32.0-36.0); Mean Corpuscular Volume 89.1 fL (80.0-100.0); Monocytes # (auto) 0.5 10 ^3/uL (0-1.3); Monocytes % (auto) 7.8 % (0.0-12.0); Neutrophils # (auto) 5.1 10 ^3/uL (1.6-8.6); Neutrophils % (auto) 85.5 % (37.0-80.0); Platelet Count (auto) 201 10^3/uL (140-450); Red Blood Cells 4.23 10^6/uL (4.5-5.90); Red Cell Distribution Width 13.7 % (11.8-14.3); White Blood Cell 5.9 10^3/uL (4.4-10.8)
[2024-11-22 03:55] LABS: Anion Gap 9 (5-15); Chloride 103 mmol/L (98-107); Sodium 143 mmol/L (136-145)
[2024-11-22 03:58] LABS: Calcium 7.4 mg/dL (8.7-10.4); Carbon Dioxide 31 mmol/L (20-31); Potassium 2.8 mmol/L (3.5-5.1)
[2024-11-22 04:01] LABS: Magnesium 2.1 mg/dL (1.6-2.6)
[2024-11-22 04:03] LABS: Phosphorus 2.7 mg/dL (2.4-5.1)
[2024-11-22 04:21] LABS: Blood Urea Nitrogen 8 mg/dL (9-23); Glucose 143 mg/dL (74-106)
[2024-11-22] MEDS: POTASSIUM CHL 20MEQ/100ML 100 ML IV SCH (06:30)
--- NOTE | 2024-11-22 13:17 | DVHDS2 ---
Discharge Summary Date of Admission Nov 16, 2024 at 16:18 Date of Discharge: Nov 22, 2024 Labs/Diagnostic Data: Laboratory Results Test 11/22/24 02:40 11/21/24 11:22 11/21/24 08:00 11/21/24 06:53 White Blood Count 5.9 10^3/uL (4.4-10.8) Red Blood Count 4.23 10^6/uL (4.5-5.90) Hemoglobin 12.9 g/dL (13.5-17.5) Hematocrit 37.7 % (41.0-53.0) Mean Corpuscular Volume 89.1 fL (80.0-100.0) Mean Corpuscular Hemoglobin 30.4 pg (28.0-32.0) Mean Corpuscular Hemoglobin Concent 34.1 g/dL (32.0-36.0) Red Cell Distribution Width 13.7 % (11.8-14.3) Platelet Count 201 10^3/uL (140-450) Mean Platelet Volume 8.5 fL (6.9-10.8) Neutrophils (%) (Auto) 85.5 % (37.0-80.0) Lymphocytes (%) (Auto) 6.6 % (10.0-50.0) Monocytes (%) (Auto) 7.8 % (0.0-12.0) Eosinophils (%) (Auto) 0.1 % (0.0-7.0) Basophils (%) (Auto) 0.0 % (0.0-2.0) Neutrophils # (Auto) 5.1 10 ^3/uL (1.6-8.6) Lymphocytes # (Auto) 0.4 10 ^3/uL (0.4-5.4) Monocytes # (Auto) 0.5 10 ^3/uL (0-1.3) Eosinophils # (Auto) 0 10 ^3/uL (0-0.8) Basophils # (Auto) 0 10 ^3/uL (0-0.2) Nucleated Red Blood Cells 0.0 % Sodium Level 143 mmol/L (136-145) Potassium Level 2.8 mmol/L (3.5-5.1) Chloride Level 103 mmol/L (98-107) Carbon Dioxide Level 31 mmol/L (20-31) Anion Gap 9 (5-15) Blood Urea Nitrogen 8 mg/dL (9-23) Creatinine 0.50 mg/dL (0.700-1.30) Glomerular Filtration Rate Calc 108 mL/min (>90) BUN/Creatinine Ratio 16.0 (10.0-20.0) Serum Glucose 143 mg/dL (74-106) Calcium Level 7.4 mg/dL (8.7-10.4) Phosphorus Level 2.7 mg/dL (2.4-5.1) Magnesium Level 2.1 mg/dL (1.6-2.6) Blood Gas Specimen Type Arterial Blood Gas Sample Site Right radial Blood Gas Patient Temperature 37.0 Arterial Blood Date Drawn [id number] Arterial Blood pH 7.483 (7.350-7.450) Arterial Blood Partial Pressure CO2 34.5 mmHg (35.0-48.0) Arterial Blood Partial Pressure O2 68.5 mmHg (83.0-108.0) Arterial Blood HCO3 25.3 mmol/L (21.0-28.0) Arterial Blood Oxygen Saturation 94.2 % (94.0-98.0) Arterial Blood Base Excess 2.3 mmol/L (-2.0-3.0) Arterial Blood Oxyhemoglobin 93.4 % (94.0-98.0) Arterial Blood Carboxyhemoglobin 0.6 % (0.5-1.5) Arterial Blood Methemoglobin 0.2 % (0.0-1.5) Cheng Test Modified Blood Gas Total Hemoglobin 14.80 g/dL (13.5-17.5) Blood Gas Modality Vent - cpap Blood Gas Spontaneous Rate 20 FiO2 % 30.0 Blood Gas Pressure Support 7 Blood Gas PEEP or CPAP 5.0 Vancomycin Level Trough 15.9 ug/mL (5-10) Blood Gas Set Respiration Rate 16.0 Blood Gas Tidal Volume 500.0 Test 11/17/24 06:24 11/16/24 14:52 11/16/24 12:50 11/16/24 10:05 Total Bilirubin 0.4 mg/dL (0.2-1.0) Aspartate Amino Transferase (AST) 16 U/L (<34) Alanine Aminotransferase (ALT) 21 U/L (7-40) Alkaline Phosphatase 86 U/L (46-116) Total Protein 6.0 g/dL (5.7-8.2) Albumin 3.6 g/dL (3.2-4.8) Troponin I High Sensitivity 54 ng/L (</=54) Lactic Acid Level 1.3 mmol/L (0.4-2.0) Urine Color Yellow (Yellow) Urine Clarity Turbid (Clear) Urine pH 5.0 (5.0-9.0) Urine Specific [place] 1.023 (1.001-1.035) Urine Protein Trace (Negative) Urine Ketones 1+ (Negative) Urine Blood 1+ /uL (Negative) Urine Nitrite Negative (Negative) Urine Bilirubin Negative (Negative) Urine Urobilinogen Normal mg/dL (Negative) Urine Leukocyte Esterase Negative /uL (Negative) Urine RBC 10 /hpf (0 - 3) Urine Microscopic WBC 9 /HPF (0-3) Urine Squamous Epithelial Cells Few /hpf (<5) Urine Bacteria None seen /hpf (None Seen) Urine Mucus Moderate (None Seen) Urine Glucose Trace mg/dL (Normal) Test 11/16/24 09:28 B-Type Natriuretic Peptide 7.55 pg/mL (0-100) Other Laboratory Tests 11/22/24 02:40 Brief Hx & Hospital Course: 74 yo M with CVA (?) w/ right sided residual admitted after foreign body aspiration. Patient was intubated, bronched and foreign body was found. Currently on minimal vent settings, still sedated and mechanically ventilated, on pressors. received bronch follow up in the OR after, clear. covered with abx, doing well n SBT, good parameters, following commands. extuabted to cool mist. failed speech eval, started on d5LR. stable for transfer to [facility] Condition at Discharge: Stable Final Diagnosis/Problems List Acute hypoxic RF req mechanical ventilation Foreign body aspiration Aspiration pneumonia Bronchopneumonitis Septic vs distributive shock Hx of CVA with residual R weakness b/l thalamic stroke on MRI Frailty Emphysema by imaging Protein calorie malnutrition Slow transit constipation adrenal insufficiency? Discharge Disposition: Acute Care Facility Discharge Instruct/Medications Diet: See Comment Diet comment: npo Activity: No Restrictions, As Tolerated Discharge Statement: "Patient was advised to return to the ER or call 911 if any headaches, dizziness, shortness of breath, chest pain, abdominal pain, bleeding, fevers, or worsening of medical condition. Patient was counseled about treatment plan, medications, possible side effects, patientverbalized understanding. All questions were answered to the best of my ability. This discharge took greater then 30 minutes in planning, reviewing documentation, counseling the patient, and discussing with other team members." ASSESSMENT ASSESSMENT Assessment acute hypoxic rf req mechanical vent Date of Service: Nov 22, 2024 Billing Provider: SHARONDA HAYWOOD MD Common Visit Codes: [id number] DISCH DAY >30min SHARONDA HAYWOOD MD Nov 22, 2024 13:17
[2024-11-22 15:12] LABS: Chloride 105 mmol/L (98-107); Sodium 143 mmol/L (136-145)
[2024-11-22 15:13] LABS: Anion Gap 8 (5-15); Carbon Dioxide 30 mmol/L (20-31)
[2024-11-22 15:19] LABS: Blood Urea Nitrogen 7 mg/dL (9-23); Glucose 127 mg/dL (74-106)
[2024-11-22 15:21] LABS: Phosphorus 1.8 mg/dL (2.4-5.1)
[2024-11-22] MEDS: POTASSIUM PHOSPHATE 44 MEQ in D5W 5% 250 ML IV ONE (17:00)
--- NOTE | 2024-11-22 18:18 | DVHPN2 ---
Progress Note - Dictate Date Seen: Nov 22, 2024 Has the PT tested + for MRSA If YES, has PT been informed?: Yes Medical Necessity Reason Pt with a Central, PICC or Fol: No vital signs Vital Sign Date Time Temp Pulse Resp B/P (MAP) Pulse Ox O2 Delivery O2 Flow Rate FiO2 11/22/24 17:15 97.9 59 17 100/52 (68) 99 97.9 11/22/24 16:00 Nasal Cannula* 2 28 Total Intake and Output 11/21/24 11/21/24 11/22/24 15:00 23:00 07:00 Intake Total 495.0 ml 1040.0 ml 790.0 ml Output Total 1575 ml 1000 ml Balance 495.0 ml -535.0 ml -210.0 ml medications Current Medications Medications Dose Ordered Sig/Zarina Route Start Time Stop Time Status Last Admin Dose Admin Norepinephrine Bitartrate 250 ml @ 3.75 mls/hr Q24H IV 11/16/24 09:30 11/18/24 07:26 7.5 MLS/HR Propofol 100 ml @ 2.19 mls/hr Q24H IV 11/16/24 09:45 11/18/24 10:04 6.57 MLS/HR Midazolam HCl 50 ml @ 1 mls/hr Q24H IV 11/16/24 09:45 11/18/24 07:26 5 MLS/HR Fentanyl Citrate 250 ml @ 2.5 mls/hr Q24H IV 11/16/24 09:45 11/19/24 05:05 5 MLS/HR Acetaminophen 650 mg Q6HP PRN PO 11/16/24 16:30 Vancomycin HCl 0 ml @ 0 mls/hr UD IV 11/16/24 16:30 Clopidogrel Bisulfate 75 mg DAILY PO 11/17/24 10:00 11/21/24 09:58 75 MG Atorvastatin Calcium 40 mg HS PO 11/16/24 22:00 11/20/24 21:34 40 MG Pantoprazole Sodium 40 mg DAILY IV 11/17/24 10:00 11/22/24 10:02 40 MG Enoxaparin Sodium 40 mg DAILY SC 11/17/24 10:00 11/22/24 10:02 40 MG Hydrocortisone Sodium Succinate 50 mg Q6HR IV 11/17/24 18:00 11/22/24 13:29 50 MG Cefepime HCl 50 ml @ 12.5 mls/hr Q8HR IV 11/17/24 22:00 11/22/24 14:50 12.5 MLS/HR Vancomycin HCl 250 ml @ 200 mls/hr Q12H IV 11/19/24 21:00 11/22/24 10:02 200 MLS/HR Enteral Nutritional Formula 1,000 ml 50ML/HR GT 11/20/24 16:15 11/20/24 16:00 1,000 ML Dextrose/Lactated Ringer's 1,000 ml @ 75 mls/hr [id number] IV 11/21/24 16:15 11/22/24 05:17 75 MLS/HR laboratory and microbiology Laboratory Tests 11/22/24 14:45 11/22/24 02:40 Test 11/22/24 14:45 Range/Units Serum Glucose 127 H 74-106 mg/dL Assessment/Plan Impression Acute hypoxemic respiratory failure Left lower lobe pneumonia Aspiration Hx of CVA Patient seen and examined in ICU Events no events S/p extubation, transitioned to cool aerosol mask No distress S/p bronchoscopy Labs and imaging reviewed ABG reviewed Management Supplemental oxygen Titrate to maintain sats 90% or above Incentive spirometry Aspiration precautions Swallow evaluation Continue antibiotics F/u cultures Bronchodilators Monitor renal function Monitor electrolytes Supplement as needed DVT prophylaxis Critical care time 35 minutes Dietary Evaluation Review Comments: 1. Underweight, increase protein needs, [place] Pump in place, offer high protein Tube Feeding, Vital High Protein @45ml/hr providing 94g protein, 1080 kcal 903ml free water. this will meet pt's protein needs 100%, energy needs 87%. If adding Propofol 74.4ml(82kcal) pt's energy will be met @94%. 2. If EN not feasible, TPN per pharmacy to meet his needs 3. CCHO-75 Cardiac diet when pt is extubated and passing a MEDICAL RECORDS LIBRARY PROFESSOR evaluation Expected Outcomes/Goals: Prevent hyperglycemia, prevent weight loss, gradual weight gain Plan discussed with: Other (rn) ERLINDA TABOR MD Nov 22, 2024 18:18
== END 2024-11-22 17:37 | disposition short-term general hospital (02) | DRG 207 ==
LOC: EDBD 09:08 → ER 09:08 → OVERFLOW 16:18 → ICU WEST 11-17 04:09
PROVIDERS: ADMIT Student in an Organized Health Care Education/Training Program; ATTEND Student in an Organized Health Care Education/Training Program
PROC: 06HY33Z Insertion of Infusion Device into Lower Vein, Percutaneous Approach (ICD-10-PCS; 2024-11-16)
PROC: 0BH17EZ Insertion of Endotracheal Airway into Trachea, Via Natural or Artificial Opening (ICD-10-PCS; 2024-11-16)
PROC: 0BC78ZZ Extirpation of Matter from Left Main Bronchus, Via Natural or Artificial Opening Endoscopic (ICD-10-PCS; 2024-11-16)
PROC: 0B9D8ZX Drainage of Right Middle Lung Lobe, Via Natural or Artificial Opening Endoscopic, Diagnostic (ICD-10-PCS; 2024-11-16)
PROC: 0BC78ZZ Extirpation of Matter from Left Main Bronchus, Via Natural or Artificial Opening Endoscopic (ICD-10-PCS; 2024-11-16)
PROC: 5A1955Z Respiratory Ventilation, Greater than 96 Consecutive Hours (ICD-10-PCS; principal; 2024-11-16 11:30)
PROC: 02HV33Z Insertion of Infusion Device into Superior Vena Cava, Percutaneous Approach (ICD-10-PCS; 2024-11-17)
DX: T17.828A Food in other parts of respiratory tract causing other injury, initial encounter (principal); A41.9 Sepsis, unspecified organism; J18.0 Bronchopneumonia, unspecified organism; J69.0 Pneumonitis due to inhalation of food and vomit; J96.01 Acute respiratory failure with hypoxia; R65.21 Severe sepsis with septic shock; R57.8 Other shock; E87.20 Acidosis, unspecified; E87.0 Hyperosmolality and hypernatremia; E46 Unspecified protein-calorie malnutrition; I69.351 Hemiplegia and hemiparesis following cerebral infarction affecting right dominant side; E27.40 Unspecified adrenocortical insufficiency; E87.6 Hypokalemia; R73.9 Hyperglycemia, unspecified; R54 Age-related physical debility; J43.9 Emphysema, unspecified; K59.01 Slow transit constipation; Z87.891 Personal history of nicotine dependence; Z87.442 Personal history of urinary calculi; Z79.899 Other long term (current) drug therapy; Z68.21 Body mass index [BMI] 21.0-21.9, adult; W44.8XXA Other foreign body entering into or through a natural orifice, initial encounter; Y93.89 Activity, other specified; Y92.89 Other specified places as the place of occurrence of the external cause; Y99.8 Other external cause status
CPT/HCPCS: 31500; 32555; 36415; 36556; 36600; 70450; 70551; 71045; 71250; 74176; 80048; 80053; 80202; 81001; 82805; 83605; 83735; 83880; 84100; 84484; 85025; 87040; 87070; 87081; 87086; 87205; 92610; 93005; 94002; 94003; 94640; 96365; 99291; 99292; G0378; J0171; J0692; J2250; J2470; J2704; J3480; J7060